=== PATIENT | male | born 1960 | race Caucasian/White ===

== ENCOUNTER 2018-04-30 15:09 | Inpatient (IN) | payer OTHER ==
[2018-04-30] MEDS ORDERED: fentaNYL 100 MCG/2 ML INJ ONE ×2 (15:18→20:15)
[2018-04-30] MEDS ORDERED: HEPARIN 10,000 UNIT/10 ML MDV (1,000 UNIT/ML) ONE (15:18)
[2018-04-30] MEDS ORDERED: VERAPAMIL 5 MG/2 ML VIAL ONE (15:18)
[2018-04-30] MEDS ORDERED: LIDOCAINE 1% 300 MG/30 ML SDV ONE (15:18)
[2018-04-30] MEDS ORDERED: MIDAZOLAM 2 MG/2 ML VIAL ONE ×2 (15:18→20:16)
[2018-04-30] MEDS ORDERED: IOHEXOL 350mgI/ML (OMNIPAQUE) 150 ML BTL IV ONE (15:19)
--- NOTE | 2018-04-30 15:29 | EDPHY ---
H & P Stated Complaint: post arrest Time Seen by Provider: 04/30/18 15:25 HPI/ROS: CHIEF COMPLAINT: VFib arrest HISTORY OF PRESENT ILLNESS: The patient is brought in emergently by paramedics after VFib arrest. The patient was at home and was observed to collapse by his started CPR. Paramedics were called the patient was noted to be in ventricular fibrillation. The patient received IV epinephrine, amiodarone in 2 shocks. This resulted in conversion to a normal sinus rhythm. Total CPR time was approximately 15 min. The patient arrives by paramedics with bag-valve masking occurring. They did attempt a oral airway without success. The patient has had no purposeful movements aside from clenching of the jaw since his return of spontaneous circulation. REVIEW OF SYSTEMS: A comprehensive 10 point review of systems is unobtainable Source: Patient, EMS Exam Limitations: No limitations - Medical/Surgical History Hx Asthma: No Hx Chronic Respiratory Disease: No Hx Diabetes: No Hx Cardiac Disease: No Hx Renal Disease: No Hx Cirrhosis: No Hx Alcoholism: No Hx HIV/AIDS: No Hx Splenectomy or Spleen Trauma: No Other PMH: spinal stenosis; knee surgery - Social History Smoking Status: Never smoked - Physical Exam Exam: General Appearance: Obtunded, unresponsive Eyes: Pupils equal and round no pallor or injection ENT, Mouth: Mucous membranes moist Respiratory: Spontaneous breathing Cardiovascular: Regular rate and rhythm Gastrointestinal: Abdomen is soft and nontender, no masses, bowel sounds normal Neurological: GCS 3 Skin: Warm and dry, no rashes Musculoskeletal: Neck is supple nontender Extremities: No asymmetric calf swelling appreciated Constitutional: Initial Vital Signs Heart Rate 71 04/30/18 15:12 Allergies/Adverse Reactions: No Known Allergies Allergy (Unverified 03/30/15 15:04) Home Medications: Medication Instructions Recorded Multivitamins [Tab-A-Angelia] 1 each PO DAILY 03/30/15 Aspirin EC [Aspirin EC 325 mg (*)] 325 mg PO DAILY #30 tab 03/31/15 Atorvastatin Calcium [Lipitor 40 40 mg PO DAILY #30 tab 03/31/15 mg (*)] Lisinopril 2.5 mg PO DAILY #30 tablet 03/31/15 Prasugrel HCl [Effient 10mg (*)] 10 mg PO DAILY #30 tab 03/31/15 Medical Decision Making - Diagnostics EKG Interpretation: EKG: Complete interpretation has been separately recorded in the [facility] archive. Summary impression: Sinus rhythm, rate 87, bifascicular block Imaging Results: Chest x-ray AP: Images reviewed by myself, bilateral pulmonary infiltrates noted, endotracheal tube in good position. Procedures: Procedure: RSI Intubation Indication for the procedure was respiratory arrest. The patient was preoxygenated with 100% oxygen by face mask. The patient was sedated with etomidate and paralyzed with succinylcholine. The patient was orally endotracheally intubated under direct visualization with a 8.0 ETT. Tracheal intubation was confirmed with misting on the tube; breath sounds were auscultated equally bilaterally; appropriate color change with [place] [employer] CO2 detector, capnography waveform is appropriate, oxygen saturation after procedure is 85%. Chest X-ray shows ETT in good position. The procedure was performed by myself. ED Course/Re-evaluation: The patient arrives the with return of spontaneous circulation following a VFib arrest with 15 min of CPR. The patient was intubated by myself. The patient was noted to have a sinus rhythm with ST segment elevation depression noted on his EKG. A cardiac alert was initiated immediately upon arrival. Bedside echocardiogram performed by hatch supervisor demonstrates normal RV function and a EF of approximately 50%. Chest x-ray confirmed tube placement. Patient is noted to have evidence of pulmonary edema. Patient will be taken to the cardiac catheterization lab and admitted to the intensive care unit. Critical Care Time: Critical care time exclusive of procedures and exclusive of the PA's time was 35 minutes, performed by myself, Waldemar Garrido MD. Patient presents to the ED with a VFib arrest. Evaluation for possible causes of PEA performed in the emergency department. Patient taken emergently to cardiac optical lab technician for angiography and ICU admission for HACA protocol. - Data Points Laboratory Results: 04/30/18 04/30/18 04/30/18 15:27 15:20 15:17 POC Hgb 19.0 gm/dL H gm/dL 18.7 gm/dL H gm/dL (13.7-17.5) (13.7-17.5) POC Hct 56 % H % 55 % H % (40-51) (40-51) POC Sodium 140 mEq/L mEq/L 143 mEq/L mEq/L (135-145) (135-145) POC Potassium 4.0 mEq/L mEq/L 2.6 mEq/L L* mEq/L (3.3-5.0) (3.3-5.0) POC Chloride 103 mEq/L mEq/L 103 mEq/L mEq/L (97-110) (97-110) POC Total CO2 21 mEq/L L mEq/L 23 mEq/L mEq/L (22-31) (22-31) POC BUN 39 mg/dL H mg/dL 38 mg/dL H mg/dL (7-23) (7-23) POC Creatinine 1.1 mg/dL mg/dL 1.2 mg/dL mg/dL (0.7-1.3) (0.7-1.3) POC Glucose 213 mg/dL H mg/dL 208 mg/dL H mg/dL (70-100) (70-100) POC Troponin I 0.18 ng/mL H ng/mL (0.00-0.08) Point of Care Test Results: Chemistry 04/30/18 04/30/18 04/30/18 15:27 15:20 15:17 POC Sodium 140 mEq/L mEq/L 143 mEq/L mEq/L (135-145) (135-145) POC Potassium 4.0 mEq/L mEq/L 2.6 mEq/L L* mEq/L (3.3-5.0) (3.3-5.0) POC Chloride 103 mEq/L mEq/L 103 mEq/L mEq/L (97-110) (97-110) POC Total CO2 21 mEq/L L mEq/L 23 mEq/L mEq/L (22-31) (22-31) POC BUN 39 mg/dL H mg/dL 38 mg/dL H mg/dL (7-23) (7-23) POC Creatinine 1.1 mg/dL mg/dL 1.2 mg/dL mg/dL (0.7-1.3) (0.7-1.3) POC Glucose 213 mg/dL H mg/dL 208 mg/dL H mg/dL (70-100) (70-100) POC Troponin I 0.18 ng/mL H ng/mL (0.00-0.08) ISTAT H&H 04/30/18 04/30/18 15:27 15:20 POC Hgb 19.0 gm/dL H gm/dL 18.7 gm/dL H gm/dL (13.7-17.5) (13.7-17.5) POC Hct 56 % H % 55 % H % (40-51) (40-51) Departure - Departure Disposition: [facility] Inpatient Acute Clinical Impression: Cardiac arrest with ventricular fibrillation Condition: Critical Referrals: Patient,NotPresent [Primary Care Provider] - As per Instructions
[2018-04-30] MEDS ORDERED: VECURONIUM BROMIDE 10 MG VIAL ONE ×2 (15:40→18:20)
[2018-04-30] MEDS ORDERED: DOPamine/DEXTROSE 400 MG/250 ML BAG IV ONE ×2 (15:41→17:14)
[2018-04-30] MEDS ORDERED: SUCCINYLCHOLINE CHLORIDE 200 MG/10 ML VIAL IVP ONE (15:43)
--- NOTE | 2018-04-30 15:44 | CPEKG ---
Test Reason : OPEN Blood Pressure : / mmHG Vent. Rate : 087 BPM Atrial Rate : 087 BPM P-R Int : 199 ms QRS Dur : 164 ms QT Int : 475 ms P-R-T Axes : 083 104 039 degrees QTc Int : 572 ms Sinus rhythm RBBB and LPFB Confirmed by Waldemar Garrido ([id number]) on 04/30/2018 3:43:27 PM Referred By: Kane Talbot Confirmed By:Waldemar Garrido
--- NOTE | 2018-04-30 15:48 | PDCONSULT ---
Vp Purchasing Note: CC: Arrest in the field (VF/VT) with 2 shocks and return of sinus rhythm HPI: Patient is a 57 y/o male with history of CAD s/p PCI to the RCA (in the setting of VF arrest in March 2015) with further history of HTN and HLP (based on medical therapy), who was working on computer at home, called for his , then went down. CPR was started and EMS arrived with VF noted on monitor. Two defibrillators were delivered in the field with return of normal sinus rhythm. One dose of EPI and AMIO were given in the field. In the ER, patient was paralyzed, and ETT tube was placed for respiratory support. Sats (on 100%) were noted to be 80-85%. Patient was last seen by Cardiology in mid February with no voiced cardiovascular complaints, but mild elevation (above guideline recommendations) to the LDL. Discussion at that time for patient to be started on PCSK-9 therapy given intolerance to higher dose statin therapy. 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) Fx: CAD NKDA Medications: (1) ASA (2) Lisinpril (3) Niacin (4) Repatha Vitals: as below PE: GEN: sedated and intubated SKIN: cool, without appreciable mottling HEENT: NCAT with PERRLA but sluggish NECK: supple LUNGS: course breath sounds (post intubation) without appreciable crackles noted COR: RRR without m/r/g ABD: soft without bowel sounds noted EXT: cool with 2+ DP/PT/RAD pulses Neuro: not assessable given sedation/intubation Labs: Laboratory Tests 04/30/18 04/30/18 15:27 15:29 POC Hgb 19.0 H POC Hct 56 H POC Sodium 140 POC Potassium 4.0 POC Chloride 103 POC Total CO2 21 L POC BUN 39 H POC Creatinine 1.1 POC Glucose 213 H POC Troponin I 0.32 H ECG with RBBB pattern, and no clear ST/T wave changes noted CXR with good placement of the ETT tube. No clear atelectasis was noted. Grossly normal heart size Echo: sluggish inferoposterior wall. Assessment: Patient is a 57 y/o male with history of CAD s/p PCI to the RCA in the setting of VF arrest in 2016 who went down at home with . High quality CPR was started and EMS arrived with two defibrillations, EPI, and AMIO round given. Patient was intubated in the ER. Bedside echo with mild hypokinesis to the inferior wall. Patient taken to the lab animal technician urgently, and critical principal D1 lesion noted. Patent RCA stents were noted. Plan: Intervention to the principal D1 underway as this note is being generated.
[2018-04-30] MEDS ORDERED: BIVALIRUDIN 250 MG/5 ML VIAL IV ONE (15:51)
[2018-04-30 16:04] LABS: PLATELET COUNT 120 10^3/uL (150-400)
[2018-04-30] MEDS ORDERED: NITROGLYCERIN 1,500 MCG/15 ML VIAL MISC ONE (16:04)
[2018-04-30] MEDS ORDERED: PROPOFOL/EMULSION 500 MG/50 ML BOTTLE IV ONE (16:07)
[2018-04-30 16:08] LABS: INR 1.28 (0.83-1.16); PROTIME(PATIENT) 16.2 SEC (12.0-15.0)
[2018-04-30] MEDS ORDERED: METOPROLOL TARTRATE 5 MG/5 ML INJ ONE ×2 (16:08→16:24)
[2018-04-30] MEDS ORDERED: PRASUGREL HCL 10 MG TAB ONE (16:13)
[2018-04-30] MEDS ORDERED: SUCCINYLCHOLINE CHLORIDE 200 MG/10 ML SYR IVP ONE (16:15)
[2018-04-30] MEDS ORDERED: ETOMIDATE 40 MG/20 ML INJ ONE (16:15)
[2018-04-30] MEDS ORDERED: POTASSIUM Cl (KCl) 10 MEQ/100 ML BAG IV ONE (16:21)
[2018-04-30] MEDS ORDERED: PROPOFOL/EMULSION 1,000 MG/100 ML BOTTLE IV ONE (16:25)
[2018-04-30] MEDS ORDERED: fentaNYL/NACL 100 ML IV SCH ×2 (16:30→17:00)
[2018-04-30] MEDS ORDERED: MIDAZOLAM HCL 50 MG in D5W 50 ML IV PRN (16:30)
[2018-04-30] MEDS ORDERED: ASPIRIN 81 MG CHEWABLE TAB ONE (16:32)
[2018-04-30] MEDS ORDERED: NS 1,000 ML IV SCH (16:45)
--- NOTE | 2018-04-30 16:50 | PDDXCAT ---
Diagnostic Cath Note - . Date: 04/30/18 Direct Care Supervisor: Antione Indication: other (Cardiac arrest) - Procedure Access: right groin Procedure: left heart catheterization, coronary angiography, left ventriculogram - Materials Left Heart Cath size: 6F Left Heart Cath materials: standard multipack (JL4, JR4, pigtail) - Findings-Left Heart Catheterization LM: Unobstructed LAD: Widely patent. Mid LAD 30% stenosis, principal diagonal 99% occluded LCX: Unobstructed RCA: Stents widely patent EDP: 12 mm of mercury LVEF: 50 Wall motion: Global hypokinesis Complications: None Estimated blood loss: <50ml Assessment: Ventricular fibrillation cardiac arrest with critical 99% stenosis of the principal diagonal. Borderline LV systolic function with normal filling pressures. Plan: PCI Intervention: Procedure: After reviewing diagnostic angiograms elected to proceed with emergency PCI. Patient was anticoagulated with Angiomax. Using a 0.014 luge wire within a 6 Lao JL4 guiding catheter left main coronary selectively intubated. 0.014 wire was advanced into the diagonal. Pre dilatation was performed with a 2.5 mm balloon re-establishing BERNIE grade 3 flow. 3.5 x 16 mm synergy stent was placed across the lesion deployed using a single inflation. Repeat angiograms revealed excellent flow with a step-down. Patient was administered intracoronary nitroglycerin with improvement of distal spasm. Patient's hemodynamic improved with opening of the diagonal. Dopamine was used transiently. For details please see the attached computer report. After observation in the oil field laborer systemic blood pressure was 140/80 off of inotropics support. Hypothermia after cardiac alert was initiated with a ThermoCool catheter inserted from the right femoral vein. Patient is taken to the ICU in stable condition. Serial laboratory data during the procedure showed improvement in PH to 7.14 with improved ventilation. Oxygenation remained stable. Will discuss ongoing care with critical Care Medicine. I met with the patient's family and support team. Will continue hypothermia for 24 hr with rewarming tomorrow. Final diagnosis cardiac alert with 15 min CPR status post successful PCI and stenting of the principal diagonal. Prognosis guarded Patient Problems: Problems Problem Status Onset Elevated troponin I level Acute Syncope Acute Ventricular fibrillation Acute Cardiac arrest with ventricular fibrillation Acute
[2018-04-30] MEDS ORDERED: ATROPINE SULFATE 1 MG/10 ML SYR ONE (16:54)
[2018-04-30 17:46] LABS: CREATINE KINASE 411 IU/L (0-224)
[2018-04-30] MEDS ORDERED: EPINEPHrine 1 MG in NS 250 ML IV SCH (18:00)
[2018-04-30] MEDS ORDERED: ALBUMIN 5% 250 ML IV ONE (18:00)
[2018-04-30] MEDS ORDERED: SODIUM BICARBONATE 50 MEQ/50 ML SYR IVP ONE (18:00)
[2018-04-30] MEDS ORDERED: METOPROLOL TARTRATE 5 MG/5 ML INJ IVP SCH (18:00)
[2018-04-30] MEDS ORDERED: FUROSEMIDE 40 MG/4 ML VIAL IVP ONE (18:00)
[2018-04-30] MEDS ORDERED: SODIUM BICARBONATE 50 MEQ/50 ML SYR ONE ×2 (18:03→21:44)
[2018-04-30 18:05] LABS: INR 5.06 (0.83-1.16); PROTIME(PATIENT) 46.2 SEC (12.0-15.0)
[2018-04-30] MEDS ORDERED: FUROSEMIDE 40 MG/4 ML VIAL ONE (18:28)
[2018-04-30] MEDS ORDERED: ALBUMIN 5% 250 ML BOTTLE IV ONE ×2 (18:44→20:28)
--- NOTE | 2018-04-30 18:45 | GCON ---
[f rep st] CONSULTATION GROUND INSTRUCTOR BASIC CONSULTATION HISTORY OF PRESENT ILLNESS: The patient is a 57-year-old white male with a past medical history of c oronary artery disease with a PCI to the right RCA in 2016 after having a ventricular fibrillation ar rest at that time. He also has hypertension and hyperlipidemia. He was working on a computer at formerly [facility] when he called his and then went down. CPR was started immediately. EMS arrived, and he was defibrillated in the field. He was also given amiodarone and epinephrine in the field. He was broug ht to the emergency room. An endotracheal tube was placed. He was taken to the cardiac catheterizat ion lab where a cardiac stent was placed. Currently, he is sedated and on mechanical ventilation. Petr pandey was subsequently transferred to the intensive care unit where he will be beginning HACA protocol. REVIEW OF SYSTEMS: A 10-point review of systems was attempted, but unable to be performed secondary to obtundation and mechanical ventilation. PAST MEDICAL HISTORY: Significant for coronary artery disease, hypertension, and hyperlipidemia. PAST SURGICAL HISTORY: He has had a PCI. ALLERGIES: No known allergies to medications. SOCIAL HISTORY: No history of tobacco use. No history of alcohol use. 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 He is m arried and has excellent family support. FAMILY HISTORY: Significant for coronary artery disease. PHYSICAL EXAM: VITAL SIGNS: Blood pressure is 103/70, pulse 80, respirations 12, temperature 36.2, and oxygen saturation 83% on mechanical ventilation. GENERAL: He is a thin, well-developed 57-year- old white male, who is obtunded on mechanical ventilation. HEENT: Pupils are smallish and poorly re active. Endotracheal tube is in good position. NECK: Supple. No cervical adenopathy. HEART: Reg ular rate and rhythm with a 2/6 systolic murmur at the left sternal border without radiation. LUNGS: Diminished breath sounds and diffuse rhonchi in all lung santos. ABDOMEN: Soft and nontender. Jean Claude wel sounds are present. EXTREMITIES: No clubbing, cyanosis, or edema. LABORATORIES: White count 6.6, hemoglobin 19, hematocrit 58, and platelet count 120. INR is 1.28. Sodium 140, potassium 4.0, chloride 103, CO2 is 21, BUN 29, creatinine 1.1, and glucose 188. Troponi n is elevated 0.070. Chest x-ray shows alveolar opacifications with upper lobe predominance, likely pulmonary edema given clinical situation. IMPRESSION: 1. Status post cardiac arrest. 2. Coronary artery disease. 3. Status post stent to the right coronary artery. 4. Coma. 5. Acute respiratory failure, requiring high oxygenation and high PEEP. 6. History of hyperlipidemia. 7. Pulmonary edema. 8. History of hypertension. RECOMMENDATIONS: 1. HACA per protocol. 2. Adequate sedation. 3. DVT and PE prophylaxis. 4. Stress ulcer prophylaxis. 5. Hold nutrition for now. 6. Close cardiovascular monitoring. 7. Prognosis is guarded at this time. /[id number]/MODL
[2018-04-30] MEDS ORDERED: VASOPRESSIN 25 UNIT in NS 250 ML IV SCH (19:00)
--- NOTE | 2018-04-30 19:35 | PDANEPAE ---
ANE History of Present Illness 57 yo for ecmo placement s/p v fib arrest, now acidotic, hypoxic on max vent ANE Past Medical History - Cardiovascular History Hx Hypertension: No Hx Arrhythmias: Yes Hx Coronary Artery / Peripheral Vascular Disease: Yes Hx CHF / Valvular Disease: Yes - Pulmonary History Hx Oxygen in Use at Home: No Hx Sleep Apnea: No - Endocrine History Hx Diabetes: No ANE Review of Systems Review of Systems: ANE Patient History - Allergies Allergies/Adverse Reactions: No Known Allergies Allergy (Unverified 03/30/15 15:04) - Home Medications Home medications: home medication list seen and reviewed Home Medications: Multivitamins [Tab-A-Angelia] 1 each PO DAILY 03/30/15 [Last Taken Unknown] - Smoking Hx Smoking Status: Never smoked ANE Labs/Vital Signs - Labs Result Diagrams: 04/30/18 15:42 04/30/18 17:00 - Vital Signs Blood Pressure: 85/38 Heart Rate: 72 Respiratory Rate: 36 O2 Sat (%): 90 Height: 5 ft 11 in Weight: 72.575 kg ANE Physical Exam - Airway Mouth exam: ETT in situ - ASA Status ASA Status: V ANE Anesthesia Plan Anesthesia Plan: general endotracheal anesthesia
[2018-04-30 20:03] LABS: PLATELET COUNT 199 10^3/uL (150-400)
[2018-04-30] MEDS ORDERED: IOPAMIDOL (ISOVUE-300) 50 ML VIAL ONE (20:40)
[2018-04-30 20:42] LABS: CREATINE KINASE 494 IU/L (0-224)
[2018-04-30] MEDS ORDERED: ALBUMIN 5% 500 ML BOTTLE IV ONE ×2 (21:43→21:56)
[2018-04-30] MEDS ORDERED: SODIUM BICARBONATE 50 MEQ/50 ML SYR IV ONE ×2 (22:00)
[2018-04-30] MEDS ORDERED: ALBUMIN 5% 500 ML IV ONE ×4 (22:00→23:30)
[2018-04-30] MEDS: POTASSIUM Cl (KCl) 50 ML IV SCH ×2 (22:23→23:27)
[2018-04-30] MEDS: PROPOFOL/EMULSION 100 ML IV SCH (22:26)
[2018-04-30] MEDS: VECURONIUM BROMIDE 50 MG in D5W 50 ML IV SCH (22:26)
[2018-04-30] MEDS: NOREPINEPHRINE BITARTRATE 16 MG in NS 250 ML IV SCH (22:27)
[2018-04-30] MEDS ORDERED: CALCIUM GLUCONATE 50 ML IV ONE ×2 (22:30→23:30)
--- NOTE | 2018-04-30 22:57 | PDINTPN ---
Pet Groomer Progress Note Assessment/Plan: CTSP due to shock with refractory metabolic and respiratory acidosis and hypoxemia. The patient was put on A-V ECMO by Dr. Tinajero just prior to my arrival, and oxygen saturation is excellent. Patient's systolic blood pressures improved and pressors are being weaned, currently off epinephrine and dopamine, on norepinephrine at 35 and vasopressin at 0.04. An initial blood gas shortly after my arrival showed persistent metabolic acidosis with incomplete respiratory compensation. The patient was given 2 amps of bicarbonate and this ECMO sweep gas flow was increased in order to improve CO2 removal, and this improved during my time at the bedside, with a pH of 7.40 and SpO2 of 352 on the most recent blood gas. The patient's making 150-200 cc/hour of urine over the last 2 hours. Adjusted ventilator settings for lung protective strategy, with low tidal volume to reduce the driving pressure, and reduced peak inspiratory flow rate to reduce the peak inspiratory flow rate. The PEEP will be kept at 7 cm H2O for the time being to help minimize derecruitment from the pulmonary edema. I expect the most the pulmonary edema occurred during the initial cardiac arrest and will clear with improved cardiac output and ECMO support. I also expect that his lactic acidosis will improve with improved oxygenation and circulatory support. There is no indication for renal replacement therapy currently given the improved acid-base status, urine output, and low-normal potassium. Discussed the case with Dr. Tinajero, Dr. Levine, Dr. Boo, respiratory therapy, job trainer, and RN The patient will be kept on ECMO overnight, with management by Dr. Tinajero and the job trainer. He will not be transferred tonight due to poor weather conditions with increased risk of complications/deterioration en route. 95 min critical care time at the bedside consulting with other providers, correcting adjustment of pressors, fluid status, and ventilator management in response to arterial blood gas and other lab results in this critically ill patient. 04/30/18 22:57 Objective: Vital Signs Temp Pulse Resp BP Pulse Ox 32.6 C L 47 L 30 H 97/68 L 100 04/30/18 22:36 04/30/18 22:36 04/30/18 22:36 04/30/18 22:36 04/30/18 22:36 Laboratory Results 04/30/18 21:30 04/30/18 21:30 04/29/18 04/30/18 05/01/18 05:59 05:59 05:59 Output Total 800 Balance -800 PT REJ 04/30/18 21:30 INR REJ 04/30/18 21:30 ICD10 Worksheet Patient Problems: Problems Problem Status Onset CAD in [place] artery Acute Cardiac arrest with ventricular fibrillation Acute s/p AV ECMO, femorals Acute ~04/30/18 Elevated troponin I level Acute Syncope Acute Ventricular fibrillation Acute
[2018-04-30 23:04] LABS: INR 5.35 (0.83-1.16); PROTIME(PATIENT) 48.2 SEC (12.0-15.0)
[2018-04-30] MEDS: FAMOTIDINE 20 MG/NACL 50 ML IV SCH (23:23)
[2018-04-30] MEDS: PETROLAT,WHT/MIN OIL/SOD CHL 3.5 GM OPHT.OINT EACHEYE SCH (23:23)
[2018-04-30] MEDS ORDERED: HEPARIN/DEXTROSE 500 ML IV SCH (23:30)
[2018-05-01] MEDS ORDERED: D50W 25 GM/50 ML SYR IVP PRN (00:17)
[2018-05-01] MEDS ORDERED: INSULIN REGULAR HUMAN 100 UNIT in NS 100 ML IV SCH (00:17)
[2018-05-01] MEDS ORDERED: D5W 1,000 ML IV SCH (00:17)
[2018-05-01] MEDS ORDERED: PROTOCOL POTASSIUM 1 DOSE MISC PRN (01:19)
[2018-05-01] MEDS: PETROLAT,WHT/MIN OIL/SOD CHL 3.5 GM OPHT.OINT EACHEYE SCH ×4 (02:36→17:26)
[2018-05-01] MEDS: CHLORHEXIDINE GLUCONATE 15 ML UDL PO SCH ×3 (02:37→22:19)
[2018-05-01] MEDS: VECURONIUM BROMIDE 50 MG in D5W 50 ML IV SCH ×2 (03:16→13:16)
[2018-05-01] MEDS: NOREPINEPHRINE BITARTRATE 16 MG in NS 250 ML IV SCH (03:16)
[2018-05-01] MEDS ORDERED: ALBUMIN 5% 500 ML BOTTLE IV ONE ×2 (03:33→14:09)
[2018-05-01] MEDS: POTASSIUM Cl (KCl) 50 ML IV SCH ×8 (03:35→13:14)
[2018-05-01] MEDS ORDERED: ALBUMIN 5% 500 ML IV ONE ×6 (04:00→23:30)
[2018-05-01 04:27] LABS: PLATELET COUNT 88 10^3/uL (150-400)
[2018-05-01 05:15] LABS: CREATINE KINASE 339 IU/L (0-224)
[2018-05-01] MEDS ORDERED: CALCIUM GLUCONATE 50 ML IV ONE (05:30)
[2018-05-01] MEDS ORDERED: MAGNESIUM SULF 1 GM/DEXTROSE 100 ML IV ONE (05:30)
[2018-05-01 05:34] LABS: INR 3.05 (0.83-1.16); PROTIME(PATIENT) 31.4 SEC (12.0-15.0)
--- NOTE | 2018-05-01 06:12 | GCON ---
[f rep st] CONSULTATION NEPHROLOGY CONSULTATION DATE OF CONSULTATION: 04/30/2018 REASON FOR CONSULTATION: Oliguric acute kidney injury, status post VFib arrest , ___HOCA protocol. HISTORY OF PRESENT ILLNESS: This is a critically ill 57-year-old male with a past medical history significant primarily for previously known coronary artery disease, who suffered a VFib arrest secondary to a primary diagonal stenosis. History was obtained from the medical records, as well as the medical staff. The patient is intubated and obtunded. The patient was in his baseline state of health, when he was noted to have a witnessed arrest in his home. EMT was immediately called and CPR was immediately initiated. The EMT service arrived and converted the patient on his 2nd electrical cardioversion. Total CPR time was 15 minutes. Upon arrival to the emergency room, the patient was taken to the cardiac catheterization lab. There, the primary diagonal was stented successfully. Other measurements done at that time included an ejection fraction noted to be 50%, and an LVEDP of 12. The patient has since been on the HOCA protocol, and on pressor support. Since the time of his arrest, he has shown evidence of hemoconcentration. His laboratory studies have been notable for a mixed respiratory and metabolic alkalosis. He does have a markedly abnormal chest x- ray, and extremely poor oxygenation, with a PO2 of 46. I was contacted by Dr. Levine and Dr. Tinajero relating to the initiation of CRRT. As related to the above findings, we are asked by Dr. Levine to assist the patient's renal diagnosis and management. PAST MEDICAL HISTORY: 1. Coronary artery disease, status post prior RCA stenting. 2. Hypertension. 3. Hyperlipidemia. SURGICAL HISTORY: Former PCI. ALLERGIES: No known allergies. FAMILY HISTORY: Positive for coronary artery disease. SOCIAL HISTORY: The patient is . 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 He does not smoke cigarettes or drink alcohol. REVIEW OF SYSTEMS: Unobtainable. PHYSICAL EXAM: VITALS: Blood pressure 85/38, heart rate 72. HEENT: Eyes, sclerae clear. Pupils small. Oropharynx, endotracheal tube in place. NECK: No lymphadenopathy or thyromegaly. LUNGS: Clear to auscultation anteriorly. CARDIOVASCULAR: Regular rate and rhythm. ABDOMEN: No bowel sounds are heard. The abdomen is relatively soft. : Olmedo catheter in place. EXTREMITIES: Warm. There is no edema. INTEGUMENT: Generally clear. NEURO: The patient is obtunded. There is no focality noted. LABORATORY STUDIES: Sodium 134, potassium 4.6, bicarb 16, creatinine 1.1, glucose 1.82, ionized calcium 0.99, phosphorus 8.8, AST 583, LDH 2017, CK MB 7.7 , troponin 1.3. White count 5, hematocrit 62.7, platelet count 199. IMPRESSION AND PLAN: Oliguric acute injury: Given the patient's arrest and dye load, it seems quite likely he will have sustained acute kidney injury. At present, there are not major advantages from a metabolic standpoint or a volume standpoint for dialysis, but it does seem likely that these will develop soon. Thus, being prepared for CRRT, or initiating CRRT at low dose that can be adjusted later, would be reasonable, providing it does not cause further hemodynamic compromise. I am presently assessing whether this is best done off the CRRT circuit or via an independent line. The patient is going to be systemically anticoagulated for the ECMO he is receiving, and so standard CVHDF without regional citrate should work, although the patient is quite hemoconcentrated. Again, we are going to have careful considerations upcoming relating to the technical aspects of this, and assure we are not inducing additional instability. His oxygenation issue should be solved by his ECMO. We will continue to monitor the situation closely, and provide dialytic support in the most optimal way possible and as needed. Thank you for allowing us to participate in this gentleman's care. We will continue to follow along closely with you. /[id number]/MODL MTDD
--- NOTE | 2018-05-01 06:22 | GOP ---
[f rep st] OPERATIVE REPORT DATE OF OPERATION: 04/30/2018 SURGEON: Reynaldo Tinajero DO MECHANICAL DESIGN TECHNICIAN: Melinda Clements, PAC. ANESTHESIOLOGIST: Fortino Pugh MD PREOPERATIVE DIAGNOSIS: Cardiogenic shock with cardiac arrest and respiratory failure, unresponsive to ventilator oxygenation with severe pulmonary edema. POSTOPERATIVE DIAGNOSIS: Cardiogenic shock with cardiac arrest and respiratory failure, unresponsive to ventilator oxygenation with severe pulmonary edema. PROCEDURE PERFORMED: Venoarterial ECMO via right common femoral artery and left common femoral vein with a 15-German arterial cannula and a 21-German venous cannula under fluoro guidance. FINDINGS: DESCRIPTION OF PROCEDURE: The patient had naq-un-zjkopqgk arrest, was intubated, and brought to the laborer [place]. After resuscitation, he was found to have a diagonal occlusion, which was opened. He was taken to the ICU where severe pulmonary edema with copious fluid emanating from the endotracheal made it difficult to oxygenate. We were requested to put in an ECMO to assist with oxygenation. His car diac function was well preserved. He was consented from his . He was taken emergently to the op erating room. Under fluoro guidance, the previous catheter was wired and an attempted harish ous cannula was started through that site. However, the wire would not enter the inferior vena cava and kept going down the iliac. For that reason, we abandoned that site and through a percutaneous st ick, placed a 21-German bicaval long venous cannula in the superior vena cava under fluoro guidance a fter heparinization without difficulty. We then placed a femoral arterial cannula on the right side because he had an arterial line on the left under fluoro guidance with good arterial return and witho ut difficulty. We undersized the cannula to allow for distal perfusion of the leg since this was don e percutaneously. The cannulas were secured in place. He was returned to the ICU in critical condit ion. SURGEONS: Reynaldo Tinajero DO and Anirudh Levine MD. /[id number]/MODL
--- NOTE | 2018-05-01 06:46 | SOAPPROG ---
SOAP Progress Note Assessment/Plan: POD#1 s/p emergent VA ECMO via right common femoral artery & left common femoral vein Cardiogenic shock with severe pulmonary edema/ARDS with hypoxemia s/p VA ECMO - Required multiple pressors that are slowly being weaned. Oxygenation status improving. HACA protocol with plan to rewarm later this afternoon. Neuro status TBD. VFib arrest (outside) s/p CPR & x2 defibrillations - Global hypokinesis noted during emergent LHC. Diagonal artery culprit lesion. High-grade CAD of the diagonal s/p successful PCI - Also has a history of PCI RCA 2015. Metabolic acidosis - improving ARF - seen by Dr. Boo. CRRT deferred at this time. Creatinine 1.4 Dispo: Ongoing critical cares per multidisciplinary team HACA protocol Subjective: Intubated, sedated, paralyzed. Temp 32.9*. Objective: Vital Signs Temp Pulse Resp BP Pulse Ox 33.3 C L 51 L 26 H 115/68 100 05/01/18 05:49 05/01/18 05:49 05/01/18 05:49 05/01/18 05:49 05/01/18 05:49 Laboratory Results 05/01/18 04:00 05/01/18 04:00 04/30/18 05/01/18 05/02/18 05:59 05:59 05:59 Intake Total 1544 Output Total 2755 Balance -1211 PT 31.4 SEC (12.0-15.0) H 05/01/18 04:55 INR 3.05 (0.83-1.16) H 05/01/18 04:55 General: unresponsive HEENT: NCAT, MMM Respiratory: intubated, rales Cardiac: bradycardiac, vfib pads : fitzgerald Extremities - right tibia IO R & L cannulas secure with dressings mildly saturated ICD10 Worksheet Patient Problems: Problems Problem Status Onset CAD in [place] artery Acute Cardiac arrest with ventricular fibrillation Acute s/p AV ECMO, femorals Acute ~04/30/18 Elevated troponin I level Acute Syncope Acute Ventricular fibrillation Acute
[2018-05-01] MEDS: FAMOTIDINE 20 MG/NACL 50 ML IV SCH ×2 (08:04→20:21)
--- NOTE | 2018-05-01 08:09 | PDINTPN ---
Seo Expert Progress Note Assessment/Plan: Assessment/plan: * Status post VFib cardiac arrest. * Coronary artery disease-status post PCI to diagonal * HACA protocol-currently being cooled on ECMO. For warming to begin approximately 4:30 this afternoon -continue per protocol * Acute hypercarbic and hypoxemic respiratory failure secondary to above- currently on ECMO. Excellent oxygenation. PCO2 low -will continue lung protective mechanisms. * Bradycardia * ECMO-per mat inspector. Will likely continue until after patient has warmed * Metabolic/lactic acidosis-improved. Given 2 amps of bicarb last night. * Shock-cardiogenic. Weaning pressors slowly * Acute renal failure-creatinine up to 1.4 -per Nephrology * Sedation-adequate. Currently paralyzed * VTE prophylaxis * Stress ulcer prophylaxis Subjective: Sedated and paralyzed on mechanical ventilation. Objective: Vital Signs Temp Pulse Resp BP Pulse Ox 32.9 C L 44 L 26 H 109/67 100 05/01/18 08:00 05/01/18 08:00 05/01/18 08:00 05/01/18 08:00 05/01/18 08:00 Laboratory Results 05/01/18 04:00 05/01/18 07:10 04/30/18 05/01/18 05/02/18 05:59 05:59 05:59 Intake Total 1544 Output Total 2755 290 Balance -1211 -290 PT 31.4 SEC (12.0-15.0) H 05/01/18 04:55 INR 3.05 (0.83-1.16) H 05/01/18 04:55 Laboratory Results 05/01/18 04:00 05/01/18 07:10 05/01/18 05/01/18 05/01/18 04:55 04:00 04:00 PT 31.4 SEC H SEC (12.0 - 15.0) INR 3.05 H (0.83 - 1.16) APTT > 250.0 SEC H* SEC (23.0 - 38.0) Patient Temperature pCO2 pO2 Total CO2 POC ABG pH ABG pH POC ABG pCO2 ABG PO2/FiO2 Ratio ABG HCO3 ABG O2 Saturation O2 Concentration % Respiration Rate Set Respiration Rate Assist Control Tidal Volume End Tidal CO2 9 PEEP Calcium 6.7 mg/dL L mg/dL (8.5 - 10.4) Phosphorus 1.4 mg/dL L mg/dL (2.5 - 4.5) Magnesium 1.7 mg/dL mg/dL (1.6 - 2.3) Total Bilirubin 1.4 mg/dL mg/dL (0.1 - 1.4) AST 227 IU/L H IU/L (17 - 59) ALT 132 IU/L H IU/L (21 - 72) Alkaline Phosphatase 73 IU/L IU/L (38 - 126) Lactate Dehydrogenase 2134 IU/L H IU/L (313 - 618) Creatine Kinase CK-MB (CK-2) Fraction CK-MB (CK-2) % Creatine Kinase Interp Troponin I Total Protein 4.9 g/dL L g/dL (6.3 - 8.2) Albumin 3.3 g/dL L g/dL (3.5 - 5.0) Specimen Hemolysis 05/01/18 05/01/18 05/01/18 04:00 01:45 00:07 PT INR APTT Patient Temperature 33.1 DEGREES DEGREES pCO2 17 mmHg L* mmHg (34 - 38) pO2 351 mmHg H mmHg (65 - 75) Total CO2 13 mEq/L L mEq/L (23 - 27) POC ABG pH 7.37 (7.35 - 7.45) ABG pH 7.43 (7.35 - 7.45) POC ABG pCO2 21 mmHg L mmHg (34 - 38) ABG PO2/FiO2 Ratio 878 RATIO RATIO ABG HCO3 12 mEq/L L mEq/L (22 - 26) ABG O2 Saturation 100 % H % (92 - 95) O2 Concentration % 40 % % Respiration Rate 26 Set Respiration Rate 26 Assist Control YES Tidal Volume 350 End Tidal CO2 PEEP 7 Calcium Phosphorus Magnesium Total Bilirubin AST ALT Alkaline Phosphatase Lactate Dehydrogenase Creatine Kinase 339 IU/L H IU/L (0 - 224) CK-MB (CK-2) Fraction 18.10 ng/mL H ng/mL (0.00 - 4.55) CK-MB (CK-2) % 5.3 % H % (0.0 - 4.0) Creatine Kinase Interp POSITIVE H Troponin I 11.000 ng/mL H ng/mL (0.000 - 0.034) Total Protein Albumin Specimen Hemolysis 106 Chest k-kix-geetaakz by myself. Endotracheal tube in good position. Central line in good position. There is diffuse pulmonary edema and likely pleural effusions - Time Spent With Patient Time Spent With Patient: 45 min of critical care time spent with patient. Case discussed with respiratory therapy and nursing Physical Exam - Physical Exam General Appearance: other (Sedated and paralyzed) EENT: PERRL/EOMI, ET tube Neck: supple Respiratory: rales (Bibasilar), No lungs clear, No normal breath sounds, No wheezing Cardiac/Chest: normal peripheral pulses, regular rate, rhythm Abdomen: normal bowel sounds, non-tender, soft Male Genitalia: deferred Rectal: deferred Skin: warm/dry Extremities: normal inspection Neuro/Psych: No alert ICD10 Worksheet Patient Problems: Problems Problem Status Onset CAD in [place] artery Acute Cardiac arrest with ventricular fibrillation Acute s/p AV ECMO, femorals Acute ~04/30/18 Elevated troponin I level Acute Syncope Acute Ventricular fibrillation Acute
[2018-05-01] MEDS: ASPIRIN EC 81 MG TAB PO SCH (08:16)
[2018-05-01] MEDS: PRASUGREL HCL 10 MG TAB PO SCH (08:17)
--- NOTE | 2018-05-01 08:51 | ECHO ---
[email or web address] [place] [id number] Main: [phone] Fax: Transthoracic Echocardiogram Name: LALITHA MARCELINO MR#: [id number] Study Date: 04/30/2018 Study Time: 03:20 PM Date of : 1960 Age: 57 year(s) Height: ( ) Weight: ( ) BSA: Gender: Male Examination: Limited Echo Indication: Cardiac Alert Image Quality: Contrast: Requested by: Kane Talbot BP: / Heart Rate: Rhythm: Indication: Cardiac Alert Procedure Staff Design/Animation Instructor: Hung Galicia RDCS Reading Physician: Kane Talbot MD Requesting Provider: Conclusions: no pericardial effusion. Borderline LV systolic function. Normal right ventricular size and function. Measurements: Chambers Valvular Assessment AV/MV Valvular Assessment TV/PV Normal Normal Normal Name Value Range Name Value Range Name Value Range Continued Measurements: Findings: Pericardium: No pericardial effusion. Exam Comments: This is a limited echo to evaluate RV and LV function. The LV ejection fraction is 45-50% The RV size and function are normal. There is mild Aortic calcification . (No Signature Object) Patient: LALITHA MARCELINO Study Date: 04/30/2018 Page 1 of 1 03:20 PM [id number]
[2018-05-01] MEDS ORDERED: SODIUM BICARBONATE 50 MEQ/50 ML SYR IVP ONE ×2 (09:00→13:15)
[2018-05-01] MEDS ORDERED: FUROSEMIDE 40 MG/4 ML VIAL IVP ONE (10:45)
[2018-05-01 10:48] LABS: CREATINE KINASE 210 IU/L (0-224)
--- NOTE | 2018-05-01 10:58 | PDMN ---
Medical Necessity Medical necessity: MCG; M575 ventricular arrhythmias: cardiac arrest in field shocked X 2, pt intubated. urgnt rn cardiac cath - PCI to principal diagonal- venoarterial ECMO via R common femoral arterya dn L common femoral vein PMHx : CAD s/p PCI to RCA in 2016, per [facility] portal, inpt admit APPROVED
[2018-05-01] MEDS ORDERED: SODIUM BICARBONATE 50 MEQ/50 ML SYR ONE (12:43)
--- NOTE | 2018-05-01 13:30 | ASMTCASEMG ---
Living Arrangements What is your living Answers: With Spouse arrangement? Who do you live with? Type Of Residence What kind of residence do Answers: House you live in? 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 Patient is under HACA protocol and will be rewarmed around 4:30 today. Neurology to evaluate the patient in the morning. Family and friends have been here. Patient may need transfer tomorrow to [place] for ECMO treatment. CM will follow. Date Signed: 05/01/2018 01:28 PM Electronically Signed By:Nelsy King LCSW
[2018-05-01] MEDS: PROPOFOL/EMULSION 100 ML IV SCH ×2 (13:35→20:21)
--- NOTE | 2018-05-01 13:37 | ASMTCASEMG ---
Living Arrangements What is your living Answers: With Spouse arrangement? Who do you live with? Type Of Residence What kind of residence do Answers: House you live in? 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 Patient has been placed on HACA protocol and will be warmed around 4:30 this afternoon. Neurology to evaluate the patient in the morning. Family and friends have been here to support the patient and family. Patient may need transfer tomorrow to [place] for ECMO treatment care. CM will follow. Date Signed: 05/01/2018 01:36 PM Electronically Signed By:Nelsy King LCSW
--- NOTE | 2018-05-01 14:50 | SOAPPROG ---
SOAP Progress Note Assessment/Plan: Assessment: 1. Zfs-km-vwyoieeh cardiac arrest with bystander CPR 2. Acute coronary syndrome PCI of the diagonal 3. Known coronary disease history of PCI of the right coronary in the setting of sudden 4. Hyperlipidemia 5. Respiratory failure on ECMO 6. GI bleeding Procedures: Left heart catheterization PCI and stenting of the diagonal, echocardiography, placement of hypothermia catheter, ECMO Consultants: Umesh Lu 05/01/18 14:46 Impression: Prognosis guarded: Day 1. On ECMO. Patient remains paralyzed and sedated. Stable hemodynamics off pressors. Echocardiogram today shows stable ejection fraction. Plan: Continue hypothermia protocol with gentle warming overnight. Neurologic evaluation. Continued ECMO support for at least 24 hr here. If the patient shows neurologic improvement, considerations for transfer to long-term ECMO center. Reassess need for ECMO tomorrow. Ventilation/oxygenation driving discussion at this point. Questions were answered with the patients family. 05/01/18 14:50 Objective: Vital Signs Temp Pulse Resp BP Pulse Ox 33.4 C L 81 26 H 80/59 L 100 05/01/18 14:00 05/01/18 14:00 05/01/18 14:00 05/01/18 14:00 05/01/18 14:00 Laboratory Results 05/01/18 04:00 05/01/18 11:55 04/30/18 05/01/18 05/02/18 05:59 05:59 05:59 Intake Total 1544 1175 Output Total 2755 2890 Balance -1211 -1715 PT 31.4 SEC (12.0-15.0) H 05/01/18 04:55 INR 3.05 (0.83-1.16) H 05/01/18 04:55 Physical Exam - Physical Exam General Appearance: other (Intubated, on ECMO, paralyzed and sedated) Respiratory: rhonchi Cardiac/Chest: regular rate, rhythm, No edema Abdomen: soft Skin: warm/dry ICD10 Worksheet Patient Problems: Problems Problem Status Onset s/p AV ECMO, femorals Acute ~04/30/18 CAD in [place] artery Acute Elevated troponin I level Acute Syncope Acute Ventricular fibrillation Acute Cardiac arrest with ventricular fibrillation Acute
--- NOTE | 2018-05-01 14:59 | POSTANESTH ---
Post Anesthetic Evaluation Cardiovascular Status: Similar to Pre-Op Cond Respiratory Status: Tx Decrease in SpO2 Level of Consciousness/Mental Status: Unconscious Pain Control: Adequate, Prn Tx Ordered Nausea/Vomiting Control: Adequate, Prn Tx Ordered Complications Possibly Related to Anesthesia: None Noted (on vent/ecmo, haca. Off pressors. Remains critical but stable. No apparent comp from geta)
--- NOTE | 2018-05-01 16:03 | SOAPPROG ---
SOAP Progress Note Assessment/Plan: Assessment: JAMES due to shock, not oliguric, lytes OK acidosis due to ischemia, pCO2 22, bicarb 14, received 2 amps recently cardiogenic shock, cooled, on ECMO Plan: continue support discussed with family no urgent dialysis needs 05/01/18 15:59 Subjective: not communicative family and friends at bedside Objective: Vital Signs Temp Pulse Resp BP Pulse Ox 33.4 C L 75 26 H 78/51 L 86 L 05/01/18 15:00 05/01/18 15:00 05/01/18 15:00 05/01/18 15:00 05/01/18 15:00 Laboratory Results 05/01/18 04:00 05/01/18 11:55 04/30/18 05/01/18 05/02/18 05:59 05:59 05:59 Intake Total 1544 2675 Output Total 2755 3340 Balance -1211 -665 PT 31.4 SEC (12.0-15.0) H 05/01/18 04:55 INR 3.05 (0.83-1.16) H 05/01/18 04:55 Physical Exam - Physical Exam General Appearance: other (sedated on ECMO) Respiratory: other (intubated coarse bs bilat) Cardiac/Chest: regular rate, rhythm, No friction rub Abdomen: other (quiet) Skin: other (cool) Extremities: No pedal edema ICD10 Worksheet Patient Problems: Problems Problem Status Onset CAD in [place] artery Acute Cardiac arrest with ventricular fibrillation Acute s/p AV ECMO, femorals Acute ~04/30/18 Elevated troponin I level Acute Syncope Acute Ventricular fibrillation Acute
[2018-05-01 16:26] LABS: PROTIME(PATIENT) 27.8 SEC (12.0-15.0)
[2018-05-01 16:54] LABS: CREATINE KINASE 293 IU/L (0-224)
--- NOTE | 2018-05-01 18:01 | ECHO ---
[email or web address] [place] [id number] Main: [phone] Fax: Transthoracic Echocardiogram Name: LALITHA MARCELINO MR#: [id number] Study Date: 05/01/2018 Study Time: 09:53 AM Date of : 1960 Age: 58 year(s) Height: ( ) Weight: ( ) BSA: Gender: Male Examination: Limited Echo Indication: limited to eval ef Image Quality: Contrast: Requested by: Kane Talbot BP: / Heart Rate: Rhythm: Indication: limited to eval ef Procedure Staff Refrigeration Brazer/Solderer: Anita Bolaños [facility] Reading Physician: Carlos Etienne MD Requesting Provider: Conclusions: Normal size left ventricle. Low normal left ventricular systolic function. The ejection fraction is estimated to be 50-55 %. Mid to basal inferoseptal, mid and basal inferior, basal anteroseptal hypokinesis. Measurements: Chambers Valvular Assessment AV/MV Valvular Assessment TV/PV Normal Normal Normal Name Value Range Name Value Range Name Value Range EF Range: 50-55 % Continued Measurements: Findings: Left Ventricle: Normal size left ventricle. Low normal left ventricular systolic function. The ejection fraction is estimated to be 50-55 %. Mid to basal inferoseptal, mid and basal inferior, basal anteroseptal hypokinesis. (No Signature Object) Patient: LALITHA MARCELINO Study Date: 05/01/2018 Page 1 of 1 09:53 AM [id number]
[2018-05-01] MEDS: ceFAZolin 2 GM/DEXTROSE 100 ML IV SCH (18:21)
[2018-05-01] MEDS ORDERED: ALBUMIN 5% 250 ML BOTTLE IV ONE (23:31)
[2018-05-02] MEDS: PETROLAT,WHT/MIN OIL/SOD CHL 3.5 GM OPHT.OINT EACHEYE SCH ×4 (01:09→17:48)
[2018-05-02] MEDS: ceFAZolin 2 GM/DEXTROSE 100 ML IV SCH ×3 (02:51→18:12)
[2018-05-02 05:38] LABS: INR 2.24 (0.83-1.16); PROTIME(PATIENT) 24.8 SEC (12.0-15.0)
[2018-05-02 05:44] LABS: PLATELET COUNT 64 10^3/uL (150-400)
[2018-05-02] MEDS ORDERED: FUROSEMIDE 20 MG/2 ML VIAL IVP ONE (06:15)
[2018-05-02] MEDS ORDERED: FUROSEMIDE 40 MG TAB PO ONE (08:00)
[2018-05-02] MEDS ORDERED: FUROSEMIDE 40 MG/4 ML VIAL IVP ONE (08:30)
--- NOTE | 2018-05-02 08:30 | PDINTPN ---
Telecom Billing Analyst Progress Note Assessment/Plan: Assessment/plan: * Status post VFib cardiac arrest. * Coronary artery disease-status post PCI to diagonal * HACA protocol-currently being cooled on ECMO. Currently warm -hold all sedation and paralytics -Neurology to see * Acute hypercarbic and hypoxemic respiratory failure secondary to above- currently on ECMO. Excellent oxygenation. PCO2 low -will continue lung protective mechanisms. -to OR today to removed patient from ECMO * Bradycardia-resolved * ECMO-per auto servicer. Will likely continue until after patient has warmed * Metabolic/lactic acidosis-improved. * Hypernatremia-improved * Shock-cardiogenic. Resolved * Acute renal failure-creatinine up to 1.5 today -per Nephrology * Sedation-sedation and paralytic on hold * VTE prophylaxis * Stress ulcer prophylaxis Subjective: Sedated on paralytic Objective: Vital Signs Temp Pulse Resp BP Pulse Ox 35 C L 82 26 H 124/53 H 100 05/02/18 05:00 05/02/18 05:00 05/02/18 05:00 05/02/18 05:00 05/02/18 05:00 Laboratory Results 05/02/18 05:00 05/02/18 05:00 05/01/18 05/02/18 05/03/18 05:59 05:59 05:59 Intake Total 1544 5136.7 Output Total 2755 5075 Balance -1211 61.7 PT 24.8 SEC (12.0-15.0) H 05/02/18 05:00 INR 2.24 (0.83-1.16) H 05/02/18 05:00 Laboratory Results 05/02/18 05:00 05/02/18 05:00 05/02/18 05/02/18 05/02/18 05:00 05:00 05:00 PT 24.8 SEC H SEC (12.0 - 15.0) INR 2.24 H (0.83 - 1.16) APTT 73.7 SEC H SEC (23.0 - 38.0) Patient Temperature 37.0 DEGREES DEGREES pCO2 21 mmHg L mmHg (34 - 38) pO2 429 mmHg H mmHg (65 - 75) Total CO2 16 mEq/L L mEq/L (23 - 27) ABG pH 7.48 H (7.35 - 7.45) ABG PO2/FiO2 Ratio 1073 RATIO RATIO ABG HCO3 16 mEq/L L mEq/L (22 - 26) ABG O2 Saturation 100 % H % (92 - 95) ABG Base Excess -6.4 mEq/L L mEq/L (-2.5 - 2.5) ABG Lactic Acid 6.4 mmol/L H mmol/L (0.5 - 1.6) O2 Concentration % 40 % % Respiration Rate 26 Set Respiration Rate 26 Assist Control YES Tidal Volume 350 PEEP 7 Calcium 6.5 mg/dL L mg/dL (8.5 - 10.4) Phosphorus 4.3 mg/dL mg/dL (2.5 - 4.5) Magnesium 1.6 mg/dL mg/dL (1.6 - 2.3) Total Bilirubin 1.5 mg/dL H mg/dL (0.1 - 1.4) AST 98 IU/L H IU/L (17 - 59) ALT 76 IU/L H IU/L (21 - 72) Alkaline Phosphatase 37 IU/L L IU/L (38 - 126) Chest m-lwn-potvqguk by myself. Endotracheal tube and central line in good position. Marked improvement in lung aeration and diminished pulmonary edema - Time Spent With Patient Time Spent With Patient: 35 min of critical care time spent with patient. Case discussed with family, surgery, Respiratory therapy and Nursing Physical Exam - Physical Exam General Appearance: other (Sedated), No alert EENT: PERRL/EOMI, ET tube Neck: non-tender, supple Respiratory: crackles (Basilar), No respiratory distress, No wheezing Cardiac/Chest: normal peripheral pulses, regular rate, rhythm Peripheral Pulses: 2+: carotid (R), carotid (L), femoral (R), femoral (L), dorsalis-pedis (R), dorsalis-pedis (L) Abdomen: normal bowel sounds, non-tender, soft Male Genitalia: deferred Rectal: deferred Skin: normal color, warm/dry Extremities: normal inspection Neuro/Psych: No alert ICD10 Worksheet Patient Problems: Problems Problem Status Onset CAD in [place] artery Acute Cardiac arrest with ventricular fibrillation Acute s/p AV ECMO, femorals Acute ~04/30/18 Elevated troponin I level Acute Syncope Acute Ventricular fibrillation Acute
[2018-05-02] MEDS: FAMOTIDINE 20 MG/NACL 50 ML IV SCH ×2 (08:39→21:18)
--- NOTE | 2018-05-02 08:41 | SOAPPROG ---
SOAP Progress Note Assessment/Plan: POD #2: s/p VA ECMO via right common femoral artery & left common femoral vein - Pt to be decannulated in OR today Subjective: unresponsive (sedated/paralyzed) Objective: Vital Signs Temp Pulse Resp BP Pulse Ox 35 C L 82 26 H 124/53 H 100 05/02/18 05:00 05/02/18 05:00 05/02/18 05:00 05/02/18 05:00 05/02/18 05:00 Laboratory Results 05/02/18 05:00 05/02/18 05:00 05/01/18 05/02/18 05/03/18 05:59 05:59 05:59 Intake Total 1544 5136.7 Output Total 2755 5075 Balance -1211 61.7 PT 24.8 SEC (12.0-15.0) H 05/02/18 05:00 INR 2.24 (0.83-1.16) H 05/02/18 05:00 Physical Exam - Physical Exam General Appearance: unresponsive EENT: ET tube Neck: normal inspection Respiratory: No respiratory distress Cardiac/Chest: regular rate, rhythm Abdomen: non-tender, soft, No distended Skin: normal color, warm/dry Extremities: No pedal edema Neuro/Psych: other (unresponsive) ICD10 Worksheet Patient Problems: Problems Problem Status Onset CAD in [place] artery Acute Cardiac arrest with ventricular fibrillation Acute s/p AV ECMO, femorals Acute ~04/30/18 Elevated troponin I level Acute Syncope Acute Ventricular fibrillation Acute
[2018-05-02] MEDS ORDERED: ALBUMIN 5% 500 ML BOTTLE IV ONE (09:39)
[2018-05-02] MEDS ORDERED: ALBUMIN 5% 250 ML BOTTLE IV ONE ×2 (09:40→09:52)
--- NOTE | 2018-05-02 09:56 | NEUROPROG ---
Assessment: [id number] - Neurology Consult: - CC: Anoxic Brain Injury from Cardiac Arrest - HPI: 05/02/18: Pt had cardiac arrest on 04/30/18 felt to be from underlying heart disease. At home where he had been normal then called his to help him and went down. CPR started immediately. EMS arrived and defibrillated him. He was also given epi and amiodarone. Pt brought to [facility] ER and then sent to cardiac cath were stent was placed. Pt intubated and sent to ICU for HACA. He completed HACA on 05/01/18. I initially saw pt on 05/02/18. Neurologic exam showed showed patient lying in bed minimally responsive (did have corneal and pupillary responses). Will need to wait for 72 hours post-cardiac arrest to make definitive prognosis if he does not clearly improve before then. 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 II: PERRL, VF cant be tested . III/IV/: eyes conjugate . V/VII: corneal reflex intact . VIII: hearing cant be tested . IX/X/XII: pt intubated so cannot assess . XI: SCM cannot be tested - Motor: . Tone: normal tone in all 4 extremity . Strength/Sensation: no withdrawal to pain - Coord: cannot assess - Gait: cannot assess - Labs: 05/01/18- Potassium 3.9 - Rads: 04/30/18- CXR: Alveolar opacities with upper lobe predominance, right greater than left. Differential considerations include ARDS, pulmonary edema, hemorrhage , or pneumonia (I personally visualized the images on 05/01/18) - Assessment: 1. Anoxic Brain Injury from cardiac arrest on 04/30/18 - 2. CAD - Plan: - Prognosis guarded, will need 72 hour post-cardiac arrest neurologic exam (05/04) to give full prognosis unless pt clearly improves before then - Neurology will continue to follow closely Objective: Vital Signs Temp Pulse Resp BP Pulse Ox 35 C L 89 28 H 124/53 H 93 05/02/18 05:00 05/02/18 08:00 05/02/18 08:00 05/02/18 05:00 05/02/18 08:00 Laboratory Results 05/02/18 05:00 05/02/18 05:00 05/01/18 05/02/18 05/03/18 05:59 05:59 05:59 Intake Total 1544 5136.7 Output Total 2755 5075 Balance -1211 61.7 PT 24.8 SEC (12.0-15.0) H 05/02/18 05:00 INR 2.24 (0.83-1.16) H 05/02/18 05:00 Allergies/Adverse Reactions: No Known Allergies Allergy (Unverified 03/30/15 15:04)
--- NOTE | 2018-05-02 10:12 | SOAPPROG ---
SOAP Progress Note Assessment/Plan: Assessment: 1. Hjg-bp-rtotnvms cardiac arrest with bystander CPR 2. Acute coronary syndrome PCI of the diagonal 3. Known coronary disease history of PCI of the right coronary in the setting of sudden 4. Hyperlipidemia 5. Respiratory failure on ECMO 6. GI bleeding Procedures: Left heart catheterization PCI and stenting of the diagonal, echocardiography, placement of hypothermia catheter, ECMO Consultants: Umesh Lu 05/01/18 14:46 Impression: Prognosis guarded: Day 1. On ECMO. Patient remains paralyzed and sedated. Stable hemodynamics off pressors. Echocardiogram today shows stable ejection fraction. Plan: Continue hypothermia protocol with gentle warming overnight. Neurologic evaluation. Continued ECMO support for at least 24 hr here. If the patient shows neurologic improvement, considerations for transfer to long-term ECMO center. Reassess need for ECMO tomorrow. Ventilation/oxygenation driving discussion at this point. Questions were answered with the patients family. 05/02/18 10:10 Impression: Substantial neurologic improvement overnight with patient responsive to commands moving upper extremities and opening eyes. Stable hemodynamics off pressors. Plan to remove ECMO today continue aggressive ICU care. No further cardiac recommendations today. Continue aggressive dual antiplatelet therapy. Will need to discuss long-term prevention as he improves. This will include resumption of PC SK 9 inhibitor as well as considerations for ICD with 2 episodes of sudden . Discussed with Dr. Díaz. Subjective: Opening eyes to command. Moving extremities to command. Objective: Vital Signs Temp Pulse Resp BP Pulse Ox 35 C L 89 28 H 124/53 H 93 05/02/18 05:00 05/02/18 08:00 05/02/18 08:00 05/02/18 05:00 05/02/18 08:00 Laboratory Results 05/02/18 05:00 05/02/18 05:00 05/01/18 05/02/18 05/03/18 05:59 05:59 05:59 Intake Total 1544 5136.7 Output Total 3505 5088 Balance -1211 61.7 PT 24.8 SEC (12.0-15.0) H 05/02/18 05:00 INR 2.24 (0.83-1.16) H 05/02/18 05:00 Physical Exam - Physical Exam General Appearance: other (Responsive) Respiratory: rhonchi Abdomen: soft Skin: warm/dry ICD10 Worksheet Patient Problems: Problems Problem Status Onset s/p AV ECMO, femorals Acute ~04/30/18 CAD in [place] artery Acute Elevated troponin I level Acute Syncope Acute Ventricular fibrillation Acute Cardiac arrest with ventricular fibrillation Acute
[2018-05-02] MEDS ORDERED: DEXMEDETOMIDINE HCL 400 MCG in NS 100 ML IV SCH (11:00)
[2018-05-02] MEDS: CHLORHEXIDINE GLUCONATE 15 ML UDL PO SCH ×2 (11:22→20:22)
[2018-05-02] MEDS: ASPIRIN EC 81 MG TAB PO SCH (11:22)
[2018-05-02] MEDS: PRASUGREL HCL 10 MG TAB PO SCH (11:30)
[2018-05-02] MEDS ORDERED: ALBUMIN 5% 250 ML IV ONE ×2 (11:30)
[2018-05-02] MEDS ORDERED: fentaNYL 100 MCG/2 ML INJ ONE ×2 (11:39→13:46)
[2018-05-02] MEDS ORDERED: PROPOFOL/EMULSION 500 MG/50 ML BOTTLE IV ONE (11:40)
--- NOTE | 2018-05-02 11:44 | PDANEPAE ---
ANE History of Present Illness here for ecmo decannulation ANE Past Medical History - Cardiovascular History Hx Hypertension: No Hx Arrhythmias: Yes Hx Coronary Artery / Peripheral Vascular Disease: Yes Hx CHF / Valvular Disease: Yes - Pulmonary History Hx Oxygen in Use at Home: No Hx Sleep Apnea: No - Endocrine History Hx Diabetes: No ANE Review of Systems Review of systems is: negative Review of Systems: - Exercise capacity Exercise capacity: <4 METS ANE Patient History - Allergies Allergies/Adverse Reactions: No Known Allergies Allergy (Unverified 03/30/15 15:04) - Home Medications Home medications: home medication list seen and reviewed Home Medications: Aspirin [Aspirin 81mg (*)] 81 mg PO DAILY 05/01/18 [Last Taken 04/30/18] Cholecalciferol Vit D3 [Vitamin D3 (*)] 1,000 units PO DAILY 05/01/18 [Last Taken Unknown] Herbals/Supplements -Info Only 1 ea PO DAILY 05/01/18 [Last Taken Unknown] Lisinopril [Zestril 2.5 mg (*)] 2.5 mg PO DAILY 05/01/18 [Last Taken 04/30/18] Multivitamins [Multivitamin (*)] 1 each PO DAILY 05/01/18 [Last Taken 04/30/18] Niacin [Slo-Niacin] 250 mg PO HS 05/01/18 [Last Taken Unknown] [place]-3 Fatty Acids [Fish Oil 1000 mg (*)] 1,000 mg PO DAILY 05/01/18 [Last Taken Unknown] - Smoking Hx Smoking Status: Never smoked ANE Labs/Vital Signs - Labs Result Diagrams: 05/02/18 05:00 05/02/18 05:00 - Vital Signs Blood Pressure: 91/39 Heart Rate: 83 Respiratory Rate: 25 O2 Sat (%): 94 Height: 180.34 cm Weight: 72.575 kg ANE Physical Exam - Airway Mouth exam: ETT in situ - Pulmonary Pulmonary: no respiratory distress (intubated) - Cardiovascular Cardiovascular: regular rate and rhythym - ASA Status ASA Status: IV ANE Anesthesia Plan Anesthesia Plan: general endotracheal anesthesia (in situ)
--- NOTE | 2018-05-02 11:58 | ASMTCMCOM ---
CM Note CM Note Notes: Letter prepared for patient's daughter, Baudilio to take to professors. CM following. Date Signed: 05/02/2018 11:55 AM Electronically Signed By:Nelsy King LCSW
[2018-05-02] MEDS ORDERED: VANCOMYCIN 1 GM VIAL ONE (12:23)
[2018-05-02] MEDS ORDERED: ePHEDrine SULFATE 25 MG/5 ML SYR ONE ×2 (12:31→13:18)
[2018-05-02] MEDS ORDERED: PHENYLEPHRINE HCL 100 MCG/ML SYR ONE ×2 (12:31→13:17)
[2018-05-02] MEDS ORDERED: PROTAMINE SULFATE 50 MG/5 ML VIAL IVP ONE (13:05)
[2018-05-02] MEDS ORDERED: CALCIUM CHLORIDE 1 GM/10 ML INJ ONE (14:02)
[2018-05-02] MEDS ORDERED: SODIUM BICARBONATE 50 MEQ/50 ML SYR ONE (14:02)
--- NOTE | 2018-05-02 14:47 | GOP ---
[f rep st] OPERATIVE REPORT DATE OF OPERATION: 05/02/2018 SURGEON: Reynaldo Tinajero DO FINANCIAL REP: Melinda Clements PA-C. ANESTHESIOLOGIST: Bryson Claudio MD. PREOPERATIVE DIAGNOSIS: Indwelling 15-Luxembourger right common femoral artery and left common femoral vei n cannulas for extracorporeal membrane oxygenation. POSTOPERATIVE DIAGNOSIS: Indwelling 15-Luxembourger right common femoral artery and left common femoral ve in cannulas for extracorporeal membrane oxygenation. PROCEDURE PERFORMED: Removal of cannulas with bovine pericardial patch repair of the left common fem oral artery with endarterectomy and removal of left common femoral vein cannula. FINDINGS: DESCRIPTION OF PROCEDURE: Patient was transferred to the OR from the ICU, and intubated with an ongo ing ECMO with a right common femoral and left common femoral vein cannula. The incision was placed d own over the cannula entrance site. Exposure of the artery proximally and distally was performed. T ape was placed around it. The patient was fully heparinized, and the cannulas were removed. I then debrided the edges of the entrance site. There was a disruption of the plaque, which was endarterect omized proximally with good flow with releasing the clamp. We then took a 1 x 0.8 cm bovine pericard ial patch and closed it primarily. Doppler revealed good distal flow as well as in the posterior tib ial. He did not have a dorsalis pedis that we could auscultate. The wound was closed in a standard fashion. I then removed the left common femoral vein cannula to close in the skin primarily over it. He was then transported to ICU in stable condition. /[id number]/MODL
[2018-05-02] MEDS ORDERED: FUROSEMIDE 100 MG/10 ML VIAL IVP ONE (15:16)
[2018-05-02] MEDS ORDERED: SODIUM BICARBONATE 50 MEQ/50 ML SYR IVP ONE (15:17)
[2018-05-02] MEDS ORDERED: D5W 1,000 ML IV SCH (15:30)
--- NOTE | 2018-05-02 15:52 | GIREPORT ---
[facility] Surgical Services - Endoscopy Department Patient Name: Shabbir Best Procedure Date: 05/02/2018 1:57 PM Patient Type: Inpatient Attending MD/ ER Physician: Romario Johnson MD Procedure: Upper GI endoscopy Indications: Hematochezia, Melena Providers: Romario Johnson MD Referring MD: Reynaldo Tinajero MD Medicines: General Anesthesia Complications: No immediate complications. Estimated blood loss: None. Description of Procedure: After obtaining informed consent, the endoscope was passed under direct vision. Throughout the procedure, the patient's blood pressure, pulse, and oxygen saturations were monitored continuously. The Endoscope was intro duced through the mouth, and advanced to the second part of duodenum. The [facility] er GI endoscopy was accomplished without difficulty. The patient tolerated th e procedure well. Findings: The examined esophagus was normal. Scattered moderate inflammation characterized by erythema, friability a nd granularity was found in the gastric body and in the gastric antrum. Food (residue) was found on the greater curvature of the gastric body. The examined duodenum was normal. Estimated Blood Loss: Estimated blood loss: none. Post Op Diagnosis: - Normal esophagus. - Gastritis. - Food (residue) in the stomach. - Normal examined duodenum. - No specimens collected. Recommendation: - Use Protonix (pantoprazole) 40 mg IV daily. - Return patient to ICU for ongoing care. - Thank you for allowing me to help in your patient's care. Do not hesi quintero to call with any questions. Attending Participation: I personally performed the entire procedure. Elizabeth Mcknight M.D Romario Johnson MD 05/02/2018 3:51:35 PM This report has been signed electronicallyMatthew MD Elizabeth Number of Addenda: 0 Note Initiated On: 05/02/2018 1:57 PM [email or web address]
--- NOTE | 2018-05-02 16:14 | SOAPPROG ---
SOAP Progress Note Assessment/Plan: Assessment/Plan: JAMES: Pt s/p cardiac arrest, was on ECMO and now off as of today. Cr was down to 1.1 but now is up to 2.1 post-op with some hyperkalemia, improving with medical management. - No emergent need for HD, but will monitor closely for HD needs. - Will treat hyperkalemia as below. - Labs show pt is dry, will add some D5W tonight. - Avoid hypotension and nephrotoxins. Hyperkalemia: will give bicarb and Lasix once and recheck. Hypernatremia: will start on D5W and continue to monitor. Shock: pt off pressors. Subjective: No acute events overnight. Pt went to OR today and removed from ECMO, also was extubated afterward. He is still having UOP, but Cr kassandra post-op and had some hyperkalemia post-op with K up to 6.4, now down to 5.5. Objective: Vital Signs Temp Pulse Resp BP Pulse Ox 36.6 C 79 23 H 105/41 L 94 05/02/18 15:00 05/02/18 15:00 05/02/18 15:00 05/02/18 15:00 05/02/18 15:00 Laboratory Results 05/02/18 05:00 05/02/18 11:28 05/01/18 05/02/18 05/03/18 05:59 05:59 05:59 Intake Total 1544 5136.7 Output Total 2755 5075 860 Balance -1211 61.7 -860 PT 24.8 SEC (12.0-15.0) H 05/02/18 05:00 INR 2.24 (0.83-1.16) H 05/02/18 05:00 General: alert and oriented, no acute distress Eyes: EOMI, PERRL OP: Clear CV: RRR Resp: labored respirations on oxymask Abd: Soft, NT/ND Ext: no edema BLE Neuro: CN II-XII grossly intact ICD10 Worksheet Patient Problems: Problems Problem Status Onset CAD in [place] artery Acute Cardiac arrest with ventricular fibrillation Acute s/p AV ECMO, femorals Acute ~04/30/18 Elevated troponin I level Acute Syncope Acute Ventricular fibrillation Acute
[2018-05-02] MEDS ORDERED: ORAL BALANCE GEL TUBE PO PRN (19:39)
[2018-05-03] MEDS: PETROLAT,WHT/MIN OIL/SOD CHL 3.5 GM OPHT.OINT EACHEYE SCH ×3 (00:07→12:06)
[2018-05-03] MEDS: ceFAZolin 2 GM/DEXTROSE 100 ML IV SCH ×3 (02:17→18:09)
[2018-05-03 06:26] LABS: PLATELET COUNT 44 10^3/uL (150-400)
--- NOTE | 2018-05-03 06:58 | SOAPPROG ---
SOAP Progress Note Assessment/Plan: Assessment: Plan: Objective: Vital Signs Temp Pulse Resp BP Pulse Ox 37.3 C 75 23 H 123/49 H 93 05/03/18 03:59 05/03/18 06:00 05/03/18 06:00 05/03/18 06:00 05/03/18 06:00 Laboratory Results 05/03/18 05:45 05/03/18 05:45 05/02/18 05/03/18 05/04/18 05:59 05:59 05:59 Intake Total 5136.7 2715 Output Total 5075 4560 Balance 61.7 -1845 PT 24.8 SEC (12.0-15.0) H 05/02/18 05:00 INR 2.24 (0.83-1.16) H 05/02/18 05:00 ICD10 Worksheet Patient Problems: Problems Problem Status Onset CAD in [place] artery Acute Cardiac arrest with ventricular fibrillation Acute s/p AV ECMO, femorals Acute ~04/30/18 Elevated troponin I level Acute Syncope Acute Ventricular fibrillation Acute
[2018-05-03] MEDS: CHLORHEXIDINE GLUCONATE 15 ML UDL PO SCH (08:04)
[2018-05-03] MEDS: FAMOTIDINE 20 MG/NACL 50 ML IV SCH (08:09)
[2018-05-03] MEDS ORDERED: POTASSIUM Cl (KCl) 50 ML IV ONE (09:00)
--- NOTE | 2018-05-03 09:13 | PDINTPN ---
Sales Technician Progress Note Assessment/Plan: Assessment/plan: * Status post VFib cardiac arrest. * Coronary artery disease-status post PCI to diagonal * HACA protocol-patient warmed. Off protocol. * Acute hypercarbic and hypoxemic respiratory failure secondary to above- markedly improved. Patient on minimal oxygen. -wean FiO2 as tolerated * Encephalopathy-patient awake and alert. Somewhat flat affect and slow to respond. * Bradycardia-resolved * ECMO-discontinued * Metabolic/lactic acidosis-improved. * Hypernatremia-improved * Shock-cardiogenic. Resolved -moved heart line * Acute renal failure-creatinine up to 2.3 today -per Nephrology -remove Olmedo * Sedation-sedation and paralytic on hold * VTE prophylaxis * Stress ulcer prophylaxis * Nutrition-none -speech to see Subjective: Comfortable in bed. Response to questions appropriately. Somewhat slow to respond and has a flat affect Objective: Vital Signs Temp Pulse Resp BP Pulse Ox 37.3 C 81 29 H 114/65 94 05/03/18 03:59 05/03/18 09:00 05/03/18 09:00 05/03/18 09:00 05/03/18 09:00 Laboratory Results 05/03/18 05:45 05/03/18 05:45 05/02/18 05/03/18 05/04/18 05:59 05:59 05:59 Intake Total 5136.7 2715 Output Total 5075 4560 375 Balance 61.7 -1845 -375 PT 24.8 SEC (12.0-15.0) H 05/02/18 05:00 INR 2.24 (0.83-1.16) H 05/02/18 05:00 - Time Spent With Patient Time Spent With Patient: 35 min of time spent with patient, over 1/2 involved with coordination of care or counseling. Case discussed with Nursing, Respiratory therapy and cardiothoracic surgery. Physical Exam - Physical Exam General Appearance: alert, no apparent distress EENT: PERRL/EOMI Neck: non-tender, supple Respiratory: crackles (Few scattered), No respiratory distress, No wheezing Cardiac/Chest: normal peripheral pulses, regular rate, rhythm Abdomen: normal bowel sounds, non-tender, soft Male Genitalia: deferred Rectal: deferred Skin: normal color, warm/dry Extremities: non-tender Neuro/Psych: alert, depressed affect, No normal mood/affect (Flat) ICD10 Worksheet Patient Problems: Problems Problem Status Onset CAD in [place] artery Acute Cardiac arrest with ventricular fibrillation Acute s/p AV ECMO, femorals Acute ~04/30/18 Elevated troponin I level Acute Syncope Acute Ventricular fibrillation Acute
[2018-05-03] MEDS: ASPIRIN EC 81 MG TAB PO SCH (11:23)
[2018-05-03] MEDS: PRASUGREL HCL 10 MG TAB PO SCH (11:23)
--- NOTE | 2018-05-03 11:45 | SOAPPROG ---
SOAP Progress Note Assessment/Plan: Assessment/Plan: 58 y/o M s/p cardiac arrest on ECMO with JAMES, non-oliguric. JAMES: - baseline Cr unknown but was down to 1.1 - Cr currently stable at 2.2 with good UO - check Crystal today - No emergent need for HD, but will monitor closely for HD needs - Avoid hypotension and nephrotoxins Hyperkalemia: Improved with UO. Hold further diuretics for now give bicarb up to 30. Hypocalcemia: Albumin >3. Will give IV 1g now. Hypernatremia: Given large bolus d5 this am and taking po. Repeat Na and would not correct more than 10mEq today. Shock: Keep MAP>65, off pressors. CT surgery following. Will continue to follow, please contact if ?'s. 05/03/18 12:49 05/03/18 12:51 05/03/18 12:51 Subjective: Patient made >5L UO last night. Up to chair and starting to take po. Objective: Vital Signs Temp Pulse Resp BP Pulse Ox 37.3 C 81 29 H 113/60 92 05/03/18 03:59 05/03/18 10:00 05/03/18 10:00 05/03/18 10:00 05/03/18 10:00 Laboratory Results 05/03/18 05:45 05/03/18 05:45 05/02/18 05/03/18 05/04/18 05:59 05:59 05:59 Intake Total 5136.7 2715 350 Output Total 5075 4560 725 Balance 61.7 -1845 -375 PT 24.8 SEC (12.0-15.0) H 05/02/18 05:00 INR 2.24 (0.83-1.16) H 05/02/18 05:00 Physical Exam - Physical Exam General Appearance: WD/WN, alert, mild distress EENT: PERRL/EOMI Neck: non-tender, full range of motion, supple Respiratory: decreased breath sounds Cardiac/Chest: regular rate, rhythm Abdomen: normal bowel sounds, non-tender, soft Skin: diaphoresis Extremities: normal range of motion, non-tender Neuro/Psych: alert, normal mood/affect, oriented x 3 ICD10 Worksheet Patient Problems: Problems Problem Status Onset CAD in [place] artery Acute Cardiac arrest with ventricular fibrillation Acute s/p AV ECMO, femorals Acute ~04/30/18 Elevated troponin I level Acute Syncope Acute Ventricular fibrillation Acute
--- NOTE | 2018-05-03 12:50 | PDCARPN ---
Cardiology Progress Note Assessment/Plan: Assessment: ACS VF arrest Plan: 1. Post PCI, continue prasugrel and ASA. 2. Will introduce BB pre discharge 3. Patient has had 2 episodes of cardiac arrest requiring resuscitation, most recent episode was without warning and performed CPR resulting in good outcome. Given recurrent ventricular fibrillation with acute coronary syndrome , ICD should be placed since patient did not have chest pain prior to current ACS episode. This was discussed with , patient not fully comprehending the situation but is agreeable to ICD. 05/03/18 12:48 Subjective: The patient is still somewhat confused and amnestic around events of past 4 days. at bedside. Reviewed/Discussed With: family, multidisciplinary team Time Spent with Patient: greater than 35 minutes Time Spent with Patient: Greater than 35 minutes spent on this patients care, greater than 50% of time spent counseling, educating, and coordinating care regarding the above mentioned plan. Objective: Vital Signs (8 Hrs) Temp Pulse Resp BP Pulse Ox 05/03/18 12:00 36.6 C 70 20 113/47 L 97 05/03/18 10:00 81 29 H 113/60 92 05/03/18 09:00 81 29 H 114/65 94 05/03/18 08:00 72 24 H 116/46 L 94 05/03/18 07:00 68 21 H 107/41 L 97 05/03/18 06:00 75 23 H 123/49 H 93 05/03/18 05:00 77 25 H 108/42 L 94 Intake/Output (24 Hrs) 05/02/18 05/03/18 05/04/18 11:59 11:59 11:59 Intake Total 4636.7 3065 Output Total 4855 4425 Balance -218.3 -1360 Intake: Oral (ml) 350 IV Intake (ml) 1101 1215 IV Infused (ml) 2860.7 800 Albumin 5% 500 ml @ As 500 Directed IV ONCE ONE Rx#: [id number] Albumin 5% 500 ml @ As 500 Directed IV ONCE ONE Rx#: [id number] Albumin 5% 500 ml @ As 500 Directed IV ONCE ONE Rx#: [id number] Albumin 5% 500 ml @ As 500 Directed IV ONCE ONE Rx#: [id number] D5w 1,000 ml @ 50 mls/hr 800 IV CONT [facility] Rx#: [id number] DOPamine/DEXTROSE 250 ml 174 @ Per Protocol IV CONT [facility] Rx#:[id number] Heparin/Dextrose 500 ml @ 227 As Directed IV CONT [facility] Rx#:[id number] Norepinephrine Bitartrate 116 16 mg In Ns 250 ml @ Per Protocol IV CONT [facility] Rx# :[id number] Propofol/Emulsion 100 ml 176.9 @ Per Protocol IV CONT [facility] Rx#:[id number] Vecuronium [place] 50 mg 104.2 In D5w 50 ml @ Per Protocol IV CONT [facility] Rx#: [id number] fentaNYL 1,000 mcg In Ns 62.6 100 ml @ Per Protocol IV CONT [facility] Rx#:[id number] Packed Red Blood Cells ( 675 ml) Whole Blood (ml) 700 Output: Urine (ml) 4855 4425 Bedside Commode 200 Catheter 4855 4075 Urinal 150 OG Tube Output (ml) 0 Large Bore (>12 [place]) 0 Oral Stomach Other: Weight 72.575 kg 78.6 kg Number of Stools Bedside Commode 1 Result Diagrams: 05/03/18 05:45 05/03/18 05:45 Cardiac Labs: Cardiac Lab Results (72 Hrs) 05/01/18 05/01/18 04/30/18 10:00 04:00 19:30 CK-MB (CK-2) Fraction 10.00 H 18.10 H 15.70 H Troponin I 4.500 H 11.000 H 4.960 H 04/30/18 04/30/18 04/30/18 17:00 16:05 15:42 CK-MB (CK-2) Fraction 7.73 H 22.30 H Troponin I 1.300 H 6.080 H 0.070 H Telemetry: NSR, close coupled PVCs. ICD10 Worksheet Patient Problems: Problems Problem Status Onset s/p AV ECMO, femorals Acute ~04/30/18 CAD in [place] artery Acute Elevated troponin I level Acute Syncope Acute Ventricular fibrillation Acute Cardiac arrest with ventricular fibrillation Acute
[2018-05-03] MEDS ORDERED: CALCIUM GLUCONATE 50 ML IV ONE (12:53)
[2018-05-03] MEDS ORDERED: POTASSIUM Cl (KCl) 100 ML IV ONE (14:15)
--- NOTE | 2018-05-03 14:48 | NEUROPROG ---
Assessment: [id number] - Neurology Consult: - CC: Possible Anoxic Brain Injury from Cardiac Arrest - Narrative Summary: 05/02/18: Pt had cardiac arrest on 04/30/18 felt to be from underlying heart disease. At home where he had been normal then called his to help him and went down. CPR started immediately. EMS arrived and defibrillated him. He was also given epi and amiodarone. Pt brought to [facility] ER and then sent to cardiac cath were stent was placed. Pt intubated and sent to ICU for HACA. He completed HACA on 05/01/18. I initially saw pt on 05/02/18. Neurologic exam showed showed patient lying in bed minimally responsive (did have corneal and pupillary responses). Will need to wait for 72 hours post-cardiac arrest to make definitive prognosis if he does not clearly improve before then. - HPI: F/U 05/03/18: Pt dramatically improved. He was extubated and has re-awoken. No focal neuro deficits. Pt confused but improving. Prognosis appears good at this time. No new complaints. 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 Differential considerations include ARDS, pulmonary edema, hemorrhage , or pneumonia - Assessment: 1. Possible Anoxic Brain Injury from cardiac arrest on 04/30/18 - 2. CAD - Plan: - Prognosis good - Neurology will continue to follow closely - 35 min spent with patient and nurse, majority of time discussing prognosis and treatment plan. Objective: Vital Signs Temp Pulse Resp BP Pulse Ox 36.6 C 81 29 H 122/60 H 93 05/03/18 12:00 05/03/18 14:00 05/03/18 14:00 05/03/18 14:00 05/03/18 14:00 Laboratory Results 05/03/18 05:45 05/03/18 13:00 05/02/18 05/03/18 05/04/18 05:59 05:59 05:59 Intake Total 5136.7 2715 740 Output Total 5091 4560 1100 Balance 61.7 -5531 -360 PT 24.8 SEC (12.0-15.0) H 05/02/18 05:00 INR 2.24 (0.83-1.16) H 05/02/18 05:00 Allergies/Adverse Reactions: No Known Allergies Allergy (Unverified 03/30/15 15:04)
--- NOTE | 2018-05-03 15:11 | ASMTCMCOM ---
CM Note CM Note Notes: 05/03/2018 Case Management Note Discussed pt during rounds this morning. Family present. Pt is now on 3L of O2. Awaiting therapy eval recommendations to assist with discharge plan. Case Management d/c poc: to be determined. Case Management to follow. Date Signed: 05/03/2018 03:08 PM Electronically Signed By:Ama Mondragon RN
[2018-05-03] MEDS: FAMOTIDINE 20 MG TAB PO SCH (20:01)
[2018-05-04] MEDS: ceFAZolin 2 GM/DEXTROSE 100 ML IV SCH ×2 (02:12→09:22)
[2018-05-04] MEDS ORDERED: POTASSIUM Cl (KCl) 100 ML IV ONE (09:00)
--- NOTE | 2018-05-04 09:21 | PDCARPN ---
Cardiology Progress Note Assessment/Plan: Assessment: ACS VF arrest Plan: 1. Post PCI, continue prasugrel and ASA. 2. Start low-dose beta-josette today. 3. Patient has had 2 episodes of cardiac arrest requiring resuscitation, most recent episode was without warning and performed CPR resulting in good outcome. Given recurrent ventricular fibrillation with acute coronary syndrome , ICD should be placed since patient did not have chest pain prior to current ACS episode. This was discussed with , patient not fully comprehending the situation but is agreeable to ICD. Tentatively plan ICD on Saturday. 05/04/18 09:20 Subjective: Does not remember our conversation from yesterday. Reports no complaints. Reviewed/Discussed With: multidisciplinary team Time Spent with Patient: greater than 25 minutes Time Spent with Patient: Greater than 25 minutes spent on this patients care, greater than 50% of time spent counseling, educating, and coordinating care regarding the above mentioned plan. Objective: Vital Signs (8 Hrs) Temp Pulse Resp BP Pulse Ox 05/04/18 06:00 77 19 134/66 H 92 05/04/18 04:00 36.8 C 74 18 115/60 94 05/04/18 02:00 92 16 117/71 92 Intake/Output (24 Hrs) 05/02/18 05/03/18 05/04/18 11:59 11:59 11:59 Intake Total 4636.7 3065 3529 Output Total 4855 4425 1075 Balance -218.3 -1360 2454 Intake: Oral (ml) 350 1990 IV Intake (ml) 1101 1215 1539 IV Infused (ml) 2860.7 800 Albumin 5% 500 ml @ As 500 Directed IV ONCE ONE Rx#: [id number] Albumin 5% 500 ml @ As 500 Directed IV ONCE ONE Rx#: [id number] Albumin 5% 500 ml @ As 500 Directed IV ONCE ONE Rx#: [id number] Albumin 5% 500 ml @ As 500 Directed IV ONCE ONE Rx#: [id number] D5w 1,000 ml @ 50 mls/hr 800 IV CONT [facility] Rx#: [id number] DOPamine/DEXTROSE 250 ml 174 @ Per Protocol IV CONT [facility] Rx#:[id number] Heparin/Dextrose 500 ml @ 227 As Directed IV CONT [facility] Rx#:[id number] Norepinephrine Bitartrate 116 16 mg In Ns 250 ml @ Per Protocol IV CONT [facility] Rx# :[id number] Propofol/Emulsion 100 ml 176.9 @ Per Protocol IV CONT [facility] Rx#:[id number] Vecuronium [place] 50 mg 104.2 In D5w 50 ml @ Per Protocol IV CONT [facility] Rx#: [id number] fentaNYL 1,000 mcg In Ns 62.6 100 ml @ Per Protocol IV CONT [facility] Rx#:[id number] Packed Red Blood Cells ( 675 ml) Whole Blood (ml) 700 Output: Urine (ml) 4855 4425 1075 Bedside Commode 200 500 Catheter 4855 4075 Urinal 150 575 OG Tube Output (ml) 0 Large Bore (>12 [place]) 0 Oral Stomach Other: Weight 72.575 kg 78.6 kg Number of Voids Bedside Commode 1 Toilet 8 Urinal 4 Number of Stools Bedside Commode 1 1 Urinal 2 Result Diagrams: 05/03/18 05:45 05/04/18 03:57 Cardiac Labs: Cardiac Lab Results (72 Hrs) 05/01/18 04/30/18 10:00 16:05 CK-MB (CK-2) Fraction 10.00 H 22.30 H Troponin I 4.500 H 6.080 H Telemetry: Normal sinus rhythm. Nonsustained ventricular tachycardia ICD10 Worksheet Patient Problems: Problems Problem Status Onset s/p AV ECMO, femorals Acute ~04/30/18 CAD in [place] artery Acute Elevated troponin I level Acute Syncope Acute Ventricular fibrillation Acute Cardiac arrest with ventricular fibrillation Acute
[2018-05-04] MEDS: PRASUGREL HCL 10 MG TAB PO SCH (09:22)
[2018-05-04] MEDS: FAMOTIDINE 20 MG TAB PO SCH ×2 (09:22→21:25)
[2018-05-04] MEDS: ASPIRIN EC 81 MG TAB PO SCH (09:22)
--- NOTE | 2018-05-04 09:30 | PDINTPN ---
[facility] Progress Note Assessment/Plan: Assessment/plan: * Status post VFib cardiac arrest. -AICD to be placed likely on Saturday * Coronary artery disease-status post PCI to diagonal * V-tach-had run last night * HACA protocol-patient warmed. Off protocol. * Acute hypercarbic and hypoxemic respiratory failure secondary to above- markedly improved. Patient on minimal oxygen. -wean FiO2 as tolerated * Encephalopathy-patient awake and alert. Somewhat flat affect and slow to respond. Short-term memory currently impaired -follow * Bradycardia-resolved * ECMO-discontinued * Metabolic/lactic acidosis-resolved * Hypernatremia-improved * Shock-cardiogenic. Resolved -moved heart line * Acute renal failure-improved -per Nephrology -remove Olmedo * Sedation-discontinued * PT/OT * VTE prophylaxis * Stress ulcer prophylaxis * Nutrition-on p.o. Subjective: Sitting up in chair. Resting comfortably. Short-term memory appears to be lacking. Somewhat frustrated that he can't remember events. Objective: Vital Signs Temp Pulse Resp BP Pulse Ox 36.8 C 77 19 134/66 H 92 05/04/18 04:00 05/04/18 06:00 05/04/18 06:00 05/04/18 06:00 05/04/18 06:00 Laboratory Results 05/03/18 05:45 05/04/18 03:57 05/03/18 05/04/18 05/05/18 05:59 05:59 05:59 Intake Total 2715 3879 Output Total 4560 1800 Balance -1845 2079 PT 24.8 SEC (12.0-15.0) H 05/02/18 05:00 INR 2.24 (0.83-1.16) H 05/02/18 05:00 Laboratory Results 05/03/18 05:45 05/04/18 03:57 05/04/18 05/03/18 03:57 00:00 Calcium 7.3 mg/dL L mg/dL 7.1 mg/dL L mg/dL (8.5 - 10.4) (8.5 - 10.4) Phosphorus 2.7 mg/dL mg/dL (2.5 - 4.5) Albumin 3.4 g/dL L g/dL (3.5 - 5.0) - Time Spent With Patient Time Spent With Patient: 35 min of time spent with patient, over 1/2 involved with coordination of care or counseling. Case discussed with nursing and Cardiology Physical Exam - Physical Exam General Appearance: alert, no apparent distress EENT: PERRL/EOMI Neck: non-tender, supple Respiratory: chest non-tender, lungs clear, normal breath sounds Cardiac/Chest: normal peripheral pulses, regular rate, rhythm Peripheral Pulses: 2+: carotid (R), carotid (L), femoral (R), femoral (L), dorsalis-pedis (R), dorsalis-pedis (L) Abdomen: normal bowel sounds, non-tender, soft Male Genitalia: deferred Rectal: deferred Skin: normal color, warm/dry Extremities: normal range of motion, non-tender, normal inspection, normal capillary refill Neuro/Psych: no motor/sensory deficits, alert, depressed affect ICD10 Worksheet Patient Problems: Problems Problem Status Onset CAD in [place] artery Acute Cardiac arrest with ventricular fibrillation Acute s/p AV ECMO, femorals Acute ~04/30/18 Elevated troponin I level Acute Syncope Acute Ventricular fibrillation Acute
--- NOTE | 2018-05-04 11:39 | NEUROPROG ---
Assessment: [id number] - Neurology Consult: - CC: Possible Anoxic Brain Injury from Cardiac Arrest - Narrative Summary: 05/02/18: Pt had cardiac arrest on 04/30/18 felt to be from underlying heart disease. At home where he had been normal then called his to help him and went down. CPR started immediately. EMS arrived and defibrillated him. He was also given epi and amiodarone. Pt brought to [facility] ER and then sent to cardiac cath were stent was placed. Pt intubated and sent to ICU for HACA. He completed HACA on 05/01/18. I initially saw pt on 05/02/18. Neurologic exam showed showed patient lying in bed minimally responsive (did have corneal and pupillary responses). Will need to wait for 72 hours post-cardiac arrest to make definitive prognosis if he does not clearly improve before then. - F/U 05/03/18: Pt dramatically improved. He was extubated and has re-awoken. No focal neuro deficits. Pt confused but improving. Prognosis appears good at this time. No new complaints. - HPI: F/U 05/04/18: Pt doing well w/o focal neuro deficits. He does have some short term memory issues which will hopefully improve with time. Continue supportive care with PT/OT/Speech to determine any rehab needs. No further neurologic inpatient w/u needed, neurology will sign off. 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 Differential considerations include ARDS, pulmonary edema, hemorrhage , or pneumonia - Assessment: 1. Cardiac arrest on 04/30/18 with possible anoxic brain injury - 2. CAD - Plan: - Prognosis appears excellent for meaningful recover - Recommend PT/OT/SPeech to determine any rehab needs, hopefully his short term memory issues will improve over time - No further inpatient neurologic w/u needed, neurology will sign off - 35 min spent with patient and nurse, majority of time discussing prognosis and treatment plan. Objective: Vital Signs Temp Pulse Resp BP Pulse Ox 37.1 C 73 21 H 123/64 H 95 05/04/18 11:22 05/04/18 11:22 05/04/18 11:22 05/04/18 11:22 05/04/18 11:22 Laboratory Results 05/03/18 05:45 05/04/18 03:57 05/03/18 05/04/18 05/05/18 05:59 05:59 05:59 Intake Total 2715 3879 500 Output Total 4560 1800 Balance -1845 2079 500 PT 24.8 SEC (12.0-15.0) H 05/02/18 05:00 INR 2.24 (0.83-1.16) H 05/02/18 05:00 Allergies/Adverse Reactions: No Known Allergies Allergy (Unverified 03/30/15 15:04)
--- NOTE | 2018-05-04 12:48 | SOAPPROG ---
SOAP Progress Note Assessment/Plan: Assessment/Plan: 58 y/o M s/p cardiac arrest on ECMO with JAMES, non-oliguric. JAMES: - baseline Cr unknown but was down to 1.1 - Cr trending back down to 1.5 today with good UO - No emergent need for HD - Avoid hypotension and nephrotoxins - keep MAP>65 Hyperkalemia: Improved with UO. Bicarb improved to 26 and may use gentle diuretics as tolerated. Hypocalcemia: Albumin >3. Replete prn and keep K>4, Mg>2 Hypernatremia: Improved with D5 and po intake down to 144, continue to monitor. Holding fluids. Will continue to follow, please contact if ?'s. 05/04/18 12:46 Subjective: Making good UO. Had run of VT overnight. Objective: Vital Signs Temp Pulse Resp BP Pulse Ox 37.1 C 73 21 H 123/64 H 95 05/04/18 11:22 05/04/18 11:22 05/04/18 11:22 05/04/18 11:22 05/04/18 11:22 Laboratory Results 05/03/18 05:45 05/04/18 03:57 05/03/18 05/04/18 05/05/18 05:59 05:59 05:59 Intake Total 2715 3879 500 Output Total 4560 1800 Balance -1845 2079 500 PT 24.8 SEC (12.0-15.0) H 05/02/18 05:00 INR 2.24 (0.83-1.16) H 05/02/18 05:00 Physical Exam - Physical Exam General Appearance: WD/WN, alert, no apparent distress EENT: PERRL/EOMI Neck: non-tender, full range of motion, supple Respiratory: chest non-tender, decreased breath sounds Cardiac/Chest: regular rate, rhythm, tachycardia Abdomen: normal bowel sounds, non-tender, soft Skin: normal color, warm/dry Extremities: normal range of motion, non-tender Neuro/Psych: no motor/sensory deficits, alert ICD10 Worksheet Patient Problems: Problems Problem Status Onset CAD in [place] artery Acute Cardiac arrest with ventricular fibrillation Acute s/p AV ECMO, femorals Acute ~04/30/18 Elevated troponin I level Acute Syncope Acute Ventricular fibrillation Acute
--- NOTE | 2018-05-04 14:23 | GCON ---
[f rep st] CONSULTATION INTERNAL MEDICINE CONSULT DATE OF CONSULTATION: 05/04/2018 REFERRING PHYSICIAN: Steven Griggs MD REASON FOR REFERRAL: Medical management of patient status post cardiac arrest. HOSPITAL COURSE: The patient is a 58-year-old man with a history of coronary artery disease and prev ious V-fib arrest. This was associated with coronary artery disease. He underwent stent, and has do ne well since then. He was doing well until prior to admission when he was working on his computer a nd without warning, he had another cardiac arrest. His performed CPR resulting in good outcome, he was transported here. He was placed on the HACA protocol and has since re-warmed and has relativ margot good cognition; however, does have ongoing mild cognitive difficulties. We are being consulted t o assist Cardiology with ongoing medical care throughout the rest of his hospitalization since he has recovered to a point where he is able to transfer out of the intensive care unit. PAST MEDICAL HISTORY: 1. Coronary artery disease with previous PCI to RCA in 2016, in the setting of V-fib arrest. 2. Hypertension. 3. Dyslipidemia. Patient has been intolerant of statins due to myalgias. SOCIAL HISTORY: He is and has an excellent support system. He does not smoke, does not drin k, does not use illicit drugs. He does regular exercise. FAMILY HISTORY: Significant for coronary artery disease. ALLERGIES: No known drug allergies. MEDICATIONS: Please see medication reconciliation. PHYSICAL EXAMINATION: VITAL SIGNS: He is afebrile. Heart rate is in the 70s, blood pressure 123/64 , respirations 21. He is 95% on 3 L. GENERAL: He is a very pleasant 58-year-old man. He is in no distress, although somewhat anxious due to his current conditions. He is alert. HEENT: Pupils are equal. Extraocular movements intact. Sclerae anicteric. Mucous membranes moist. NECK: Supple wit hout adenopathy. HEART: Regular with a systolic murmur. LUNGS: He has good breath sounds with russell e basilar rales. ABDOMEN: Soft, nontender, nondistended. EXTREMITIES: No significant clubbing, cy anosis or edema. MUSCULOSKELETAL: No joint deformities or effusions. NEUROLOGIC: He has some shor t-term memory loss, but his speech is clear and he is moving all 4 extremities. SKIN: Intact. No r abdiaziz. PSYCHIATRIC: Mildly anxious. Otherwise, mood is appropriate. LABORATORY DATA: CBC shows mild anemia with a hemoglobin of 9.88, platelet count of 44. Chemistries are within normal limits, BUN 40 and creatinine of 1.5. DIAGNOSTICS: 1. He did have an upper endoscopy for a GI bleed showing gastritis on 05/02/2018. 2. Left heart catheterization showing widely patent mid LAD, 30% stenosis, principal diagonal 99% oc cluded. RCA stent open, status post stent to the principal diagonal. 3. Echocardiogram: Left ventricular ejection fraction 45% to 50%, with followup echo showing minima lly improved LVEF of 50% to 55%. 4. HACA protocol. ADMITTING PHYSICIAN: Cardiology. CONSULTATIONS: Include Intensive Care, Neurology, and Nephrology. ASSESSMENT AND PLAN: 1. Coronary artery disease, status post 99% lesion in the prime principal diagonal, status post sten t presenting in ventricular fibrillation arrest, status post HACA protocol with overall excellent imp rovement and prognosis. Patient is fairly asymptomatic with his coronary artery disease, both ventri cular fibrillation arrest, presented with minimal symptoms, so Dr. Griggs plans on placing an automatic implantable cardioverter defibrillator on Saturday or later in the week depending on patient's overall condition. 2. Acute hypercarbic and hypoxemic respiratory failure, secondary to above. Marked improvement did require ECMO during his HACA protocol, but it is continuing to require decreasing oxygen needs over t he course of this hospitalization. 3. Encephalopathy. Patient awake and alert, somewhat flat and slow to respond, and short-term memor y is impaired; however, hopefully this will improve over time. 4. Cardiogenic shock, resolved. removed. 5. Acute renal failure, improving. Appreciate Nephrology followup. 6. Deep vein thrombosis prophylaxis. Chemical prophylaxis on hold due to thrombocytopenia. 7. Thrombocytopenia. Suspect this may be due to the HACA protocol. Hopefully, this will improve ov er time. 8. Stress ulcer prophylaxis, on Pepcid. Thank you for the consultation. [facility] care [facility] the [id number]/MODL
[2018-05-04] MEDS ORDERED: FUROSEMIDE 20 MG/2 ML VIAL IVP ONE (21:15)
[2018-05-04] MEDS: METOPROLOL TARTRATE 25 MG TAB PO SCH (21:25)
[2018-05-04] MEDS: ACETAMINOPHEN 325 MG TAB PO PRN (21:25)
[2018-05-05] MEDS: MELATONIN 3 MG TAB PO SCH ×2 (04:10→20:06)
[2018-05-05 05:58] LABS: INR 1.13 (0.83-1.16); PROTIME(PATIENT) 14.7 SEC (12.0-15.0)
[2018-05-05 06:03] LABS: PLATELET COUNT 49 10^3/uL (150-400)
[2018-05-05] MEDS ORDERED: PROTOCOL POTASSIUM 1 DOSE MISC PRN (08:22)
[2018-05-05] MEDS ORDERED: POTASSIUM CL 10 MEQ TAB PO ONE ×2 (08:24→19:49)
[2018-05-05] MEDS: METOPROLOL TARTRATE 25 MG TAB PO SCH ×2 (08:28→20:06)
[2018-05-05] MEDS: ASPIRIN EC 81 MG TAB PO SCH (08:28)
[2018-05-05] MEDS: PRASUGREL HCL 10 MG TAB PO SCH (08:28)
[2018-05-05] MEDS: FAMOTIDINE 20 MG TAB PO SCH ×2 (08:29→20:06)
--- NOTE | 2018-05-05 10:12 | SOAPPROG ---
SOAP Progress Note Assessment/Plan: Assessment/Plan: JAMES: Pt s/p cardiac arrest, was on ECMO and now off as of 05/02. Cr was down to 1.1 but went up to 2.3 post-op on 05/02, has steadily improved since and now is back down to 1.3, good UOP, lytes ok. - No need for HD. - Continue to monitor. - Avoid hypotension and nephrotoxins. Hypokalemia: being replaced this am. Hypernatremia: improved with some D5W given, now stable with oral fluid intake alone. Thank you for the interesting consult. Nephrology will sign off at this time, please call if you have any additional questions or concerns. Subjective: No acute events overnight. Pt having good UOP, did have a dose of Lasix last night. He is breathing comfortably, notes he has poor appetite as food does not taste good. He is tired. Objective: Vital Signs Temp Pulse Resp BP Pulse Ox 36.6 C 66 22 H 120/57 L 93 05/05/18 07:47 05/05/18 07:47 05/05/18 07:47 05/05/18 07:47 05/05/18 07:47 Laboratory Results 05/05/18 05:25 05/05/18 05:25 05/04/18 05/05/18 05/06/18 05:59 05:59 05:59 Intake Total 3879 2355 Output Total 1800 1851 Balance 2079 504 PT 14.7 SEC (12.0-15.0) 05/05/18 05:25 INR 1.13 (0.83-1.16) 05/05/18 05:25 General: alert and oriented, no acute distress Eyes: EOMI, PERRL OP: Clear CV: RRR Resp: nonlabored respirations Abd: Soft, NT/ND Ext: no edema BLE Neuro: CN II-XII grossly intact, no asterixis Psych: cooperative ICD10 Worksheet Patient Problems: Problems Problem Status Onset CAD in [place] artery Acute Cardiac arrest with ventricular fibrillation Acute s/p AV ECMO, femorals Acute ~04/30/18 Elevated troponin I level Acute Syncope Acute Ventricular fibrillation Acute
--- NOTE | 2018-05-05 12:15 | PDCARPN ---
Cardiology Progress Note Chief Complaint: ACS VF Arrest Assessment/Plan: Assessment: 1. Acute coronary syndrome: Emergent diag PCI 2. VF arrest: second lifetime VF arrest, both of which have occurred in the setting of ACS. Plan for ICD implant 3. NSVT: 1 episode of asymptomatic NSVT noted on telemetry 05/04 Plan: 1. Plan for Biotronik single-chamber ICD implant with Dr. Griggs tomorrow 05/06/18 2. NPO after midnight Risks of transvenous ICD implantation was reviewed with patient and his family now that his memory is more intact Risks including, but not limited to , myocardial infarction, stroke, cardiac tamponade which may require emergent cardiac surgery, infection, bleeding, pneumothorax, lead dislodgement and risks of sedation/anesthesia were discussed. Long-term issues like ICD pocket erosion , lead failure, venous stenosis, superior vena cava syndrome, need for lead extraction were discussed. Need for close long-term follow-up in our device clinic was emphasized. Need for generator change was discussed. We discussed that appropriate and inappropriate ICD shocks can occur. The risk of inappropriate ICD shocks is higher in patients with atrial fibrillation. 05/05/18 12:18 Subjective: No issues overnight aside from difficult sleep, improving memory. Reviewed/Discussed With: multidisciplinary team Time Spent with Patient: greater than 35 minutes Time Spent with Patient: Greater than 35 minutes spent on this patients care, greater than 50% of time spent counseling, educating, and coordinating care regarding the above mentioned plan. Objective: Vital Signs (8 Hrs) Temp Pulse Resp BP Pulse Ox 05/05/18 11:02 36.8 C 72 22 H 122/54 H 95 05/05/18 07:47 36.6 C 66 22 H 120/57 L 93 05/05/18 04:00 36.6 C 58 L 28 H 117/51 L 93 Intake/Output (24 Hrs) 05/04/18 05/05/18 05/06/18 05:59 05:59 05:59 Intake Total 3879 2355 Output Total 1800 1851 Balance 2079 504 Intake: Oral (ml) 2340 2150 IV Intake (ml) 1539 205 Output: Urine (ml) 1800 1851 Bedside Commode 700 250 Catheter 375 Toilet 1 Urinal 725 1600 Other: Intake Quantity Yes Sufficient Number of Voids Bedside Commode 1 Toilet 8 1 Urinal 4 1 Number of Stools Bedside Commode 1 Urinal 2 Result Diagrams: 05/05/18 05:25 05/05/18 05:25 Telemetry: NSR - Physical Exam Constitutional: WDWN, healthy appearing, no apparent distress Ears, Nose, Mouth, Throat: moist mucous membranes, no oral ulcers, no thrush Cardiovascular: regular rate and rhythm, no rubs, no gallops Peripheral Pulses: 2+: dorsalis-pedis (R), dorsalis-pedis (L) Respiratory: no wheezes, other (bilateral crackles) Neurologic: AAOx3, CN II-XII grossly intact Psychiatric: cooperative, interactive, following commands, not anxious ICD10 Worksheet Patient Problems: Problems Problem Status Onset CAD in [place] artery Acute Cardiac arrest with ventricular fibrillation Acute s/p AV ECMO, femorals Acute ~04/30/18 Elevated troponin I level Acute Syncope Acute Ventricular fibrillation Acute
--- NOTE | 2018-05-05 12:16 | POSTANESTH ---
Post Anesthetic Evaluation Cardiovascular Status: Normal, Stable Respiratory Status: Normal, Stable Level of Consciousness/Mental Status: Can Participate in Eval Pain Control: Adequate, Prn Tx Ordered Nausea/Vomiting Control: Adequate, Prn Tx Ordered Complications Possibly Related to Anesthesia: None Noted
--- NOTE | 2018-05-05 14:21 | ASMTCMCOM ---
CM Note CM Note Notes: DIscussed pt's care in rounds. PT/OT recommending inpatient rehab, MD to put order in. Inpt rehab notified. Pt will need PCP appt at discharge. Plan: Inpatient rehab Date Signed: 05/05/2018 02:20 PM Electronically Signed By:BOB Mccarthy
--- NOTE | 2018-05-05 15:22 | HOSPPROG ---
Hospitalist Progress Note Assessment/Plan: 58-year-old man with a history of coronary artery disease status post previous VFib arrest secondary to occluded RCA is admitted with cardiac arrest at home. He collapsed at home and his performed CPR and call 911. He was brought in to [facility] underwent angiogram and had a stent placed to a principal circumflex. He was placed on HACA and required ECMO. After rewarming he has done extremely well with improved cognition daily, although he still has some short-term memory issues. # VFib arrest, overall excellent recovery. Due to coronary artery disease. Because he is relatively asymptomatic from his coronary artery disease and presents with VFib arrest Cardiology will place an AICD tomorrow. # coronary artery disease, patient has presented twice now with VFib arrest rather than any symptoms of chest pain. * Intolerant of statins in the past due to elevated CPK and myalgias * Followed by Dr. Levine who has been working with his insurance to get Repatha # hypertension # hyperlipidemia Disposition: Patient will get AICD prior to discharge. Will do an inpatient rehab consult for possible transfer after his acute hospital stay. Subjective: Overall patient doing well, does not remember meeting me yesterday although today he has much better affect and memory per his Objective: Vital Signs Temp Pulse Resp BP Pulse Ox 36.8 C 70 22 H 122/64 H 93 05/05/18 11:54 05/05/18 11:54 05/05/18 11:54 05/05/18 11:54 05/05/18 11:54 Laboratory Results 05/05/18 05:25 05/05/18 05:25 05/04/18 05/05/18 05/06/18 05:59 05:59 05:59 Intake Total 3879 2355 Output Total 1800 1851 Balance 2079 504 PT 14.7 SEC (12.0-15.0) 05/05/18 05:25 INR 1.13 (0.83-1.16) 05/05/18 05:25 - Physical Exam Constitutional: no apparent distress, not in pain Eyes: PERRL Ears, Nose, Mouth, Throat: moist mucous membranes Cardiovascular: regular rate and rhythym Respiratory: no respiratory distress, clear to auscultation Gastrointestinal: soft, non-tender abdomen Genitourinary: no bladder fullness Skin: warm, normal color Musculoskeletal: generalized weakness Neurologic: No facial droop Psychiatric: interacting appropriately ICD10 Worksheet Patient Problems: Problems Problem Status Onset s/p AV ECMO, femorals Acute ~04/30/18 CAD in [place] artery Acute Elevated troponin I level Acute Syncope Acute Ventricular fibrillation Acute Cardiac arrest with ventricular fibrillation Acute
[2018-05-06] MEDS: ACETAMINOPHEN 325 MG TAB PO PRN ×2 (00:43→21:18)
[2018-05-06 05:49] LABS: PLATELET COUNT 68 10^3/uL (150-400)
[2018-05-06 05:53] LABS: INR 1.11 (0.83-1.16); PROTIME(PATIENT) 14.5 SEC (12.0-15.0)
[2018-05-06] MEDS ORDERED: BACITRACIN IRRIGATION/NS 50,000 UNITS/1,000 ML BTL IRR ONE (06:00)
[2018-05-06] MEDS ORDERED: ceFAZolin 2 GM/DEXTROSE 100 ML IV ONE (06:00)
[2018-05-06] MEDS ORDERED: NS 1,000 ML IV ONE (06:00)
[2018-05-06] MEDS: METOPROLOL TARTRATE 25 MG TAB PO SCH ×2 (08:53→21:16)
[2018-05-06] MEDS ORDERED: POTASSIUM CL 10 MEQ TAB PO ONE (08:54)
--- NOTE | 2018-05-06 09:20 | PDGENHP ---
History & Physical Chief Complaint: VF arrest History of Present Illness: History of VF x2 in the setting of ACS without chest discomfort/angina. Relevant Physical Exam: General: A&0x4, no apparent distress. Respiratory: bilateral crackles. Cardiac: Regular rate and rhythm, +systolic mumur Cardiorespiratory Assessment: Proceed with implant of Biotronik single chamber ICD.
[2018-05-06] MEDS: FAMOTIDINE 20 MG TAB PO SCH ×2 (09:22→21:15)
[2018-05-06] MEDS: ASPIRIN EC 81 MG TAB PO SCH (09:22)
[2018-05-06] MEDS: PRASUGREL HCL 10 MG TAB PO SCH (09:22)
--- NOTE | 2018-05-06 09:24 | PDCARPN ---
Cardiology Progress Note Chief Complaint: VF arrest ACS Assessment/Plan: Assessment: 1. Acute coronary syndrome: s/p emergent diag PCI 2. VF arrest: second lifetime VF arrest, both of which have occurred in the setting of ACS. Plan for ICD implant today 3. NSVT: 1 episode of NSVT noted on telemetry 05/04 4. Anemia and thrombocytopenia: H&H continues to trend down. Platelets low, stable. Plan: 1. Plan for Biotronik single-chamber ICD implant today. CXR and device interrogation planned for tomorrow morning. Activity restrictions and exercise limitations reviewed with patient and his family in detail. 2. Recommend workup for anemia and thrombocytopenia, will defer to hospitalist/ IM service. 05/06/18 09:21 Subjective: Sore ribs and poor sleep, no other issues overnight Reviewed/Discussed With: family, multidisciplinary team Time Spent with Patient: greater than 35 minutes Time Spent with Patient: Greater than 35 minutes spent on this patients care, greater than 50% of time spent counseling, educating, and coordinating care regarding the above mentioned plan. Objective: Vital Signs (8 Hrs) Temp Pulse Resp BP Pulse Ox 05/06/18 07:22 37.3 C 60 20 128/58 H 93 05/06/18 04:00 36.9 C 60 24 H 117/55 L 92 Intake/Output (24 Hrs) 05/05/18 05/06/18 05/07/18 05:59 05:59 05:59 Intake Total 2355 600 200 Output Total 1851 625 250 Balance 504 -25 -50 Intake: Oral (ml) 2150 600 200 IV Intake (ml) 205 Output: Urine (ml) 1851 625 250 Bedside Commode 250 Toilet 1 Urinal 1600 625 250 Other: Intake Quantity Yes Yes Sufficient Number of Voids Toilet 1 Urinal 1 Result Diagrams: 05/06/18 05:30 05/06/18 05:30 - Physical Exam Constitutional: WDWN, healthy appearing, no apparent distress Ears, Nose, Mouth, Throat: moist mucous membranes, no oral ulcers, no thrush Cardiovascular: regular rate and rhythm, no rubs, no gallops, systolic murmur Peripheral Pulses: 2+: dorsalis-pedis (R), dorsalis-pedis (L) Respiratory: no wheezes, other (bilateral crackles) Gastrointestinal: normoactive bowel sounds, no tenderness, no masses Skin: no rashes, no abrasions, no ulcers, warm, no edema Neurologic: AAOx3, CN II-XII grossly intact Psychiatric: cooperative, interactive, following commands, not anxious ICD10 Worksheet Patient Problems: Problems Problem Status Onset CAD in [place] artery Acute Cardiac arrest with ventricular fibrillation Acute s/p AV ECMO, femorals Acute ~04/30/18 Elevated troponin I level Acute Syncope Acute Ventricular fibrillation Acute
--- NOTE | 2018-05-06 11:26 | PDANEPAE ---
ANE History of Present Illness here for ICD s/p VF arrest ECMO ANE Past Medical History - Cardiovascular History Hx Hypertension: No Hx Arrhythmias: Yes Hx Coronary Artery / Peripheral Vascular Disease: Yes Hx CHF / Valvular Disease: Yes - Pulmonary History Hx Oxygen in Use at Home: No Hx Sleep Apnea: No - Endocrine History Hx Diabetes: No - Renal History Hx Renal Disorders: No ANE Review of Systems Review of systems is: negative Review of Systems: - Exercise capacity Exercise capacity: >=4 METS ANE Patient History - Allergies Allergies/Adverse Reactions: No Known Allergies Allergy (Unverified 03/30/15 15:04) - Home Medications Home medications: home medication list seen and reviewed Home Medications: Aspirin [Aspirin 81mg (*)] 81 mg PO DAILY 05/01/18 [Last Taken 04/30/18] Cholecalciferol Vit D3 [Vitamin D3 (*)] 1,000 units PO DAILY 05/01/18 [Last Taken Unknown] Herbals/Supplements -Info Only 1 ea PO DAILY 05/01/18 [Last Taken Unknown] Lisinopril [Zestril 2.5 mg (*)] 2.5 mg PO DAILY 05/01/18 [Last Taken 04/30/18] Multivitamins [Multivitamin (*)] 1 each PO DAILY 05/01/18 [Last Taken 04/30/18] Niacin [Slo-Niacin] 250 mg PO HS 05/01/18 [Last Taken Unknown] Morven-3 Fatty Acids [Fish Oil 1000 mg (*)] 1,000 mg PO DAILY 05/01/18 [Last Taken Unknown] - NPO status NPO Status: no food or drink >8 hours - Smoking Hx Smoking Status: Never smoked ANE Labs/Vital Signs - Labs Result Diagrams: 05/06/18 05:30 05/06/18 05:30 - Vital Signs Vital Signs: reviewed preoperatively; see RN documention for details Blood Pressure: 128/58 Heart Rate: 60 Respiratory Rate: 20 O2 Sat (%): 93 Height: 180.34 cm Weight: 78.6 kg ANE Physical Exam - Airway Neck exam: FROM Mallampati Score: Class 1 - Pulmonary Pulmonary: no respiratory distress - Cardiovascular Cardiovascular: regular rate and rhythym - ASA Status ASA Status: III ANE Anesthesia Plan Anesthesia Plan: GA with mask
[2018-05-06] MEDS ORDERED: LIDOCAINE 1% 300 MG/30 ML SDV ONE (11:53)
[2018-05-06] MEDS ORDERED: BUPIVACAINE 0.75% 10 ML SDV ONE (11:54)
[2018-05-06] MEDS ORDERED: IOPAMIDOL (ISOVUE-300) 100 ML BTL ONE (11:54)
[2018-05-06] MEDS ORDERED: fentaNYL 100 MCG/2 ML INJ ONE (12:11)
[2018-05-06] MEDS ORDERED: PROPOFOL/EMULSION 500 MG/50 ML BOTTLE IV ONE (12:12)
[2018-05-06] MEDS ORDERED: PROPOFOL 200 MG/20 ML VIAL ONE (12:58)
--- NOTE | 2018-05-06 13:15 | EPPROC ---
Electrophysiology Procedure Note: PROCEDURE PERFORMED: 1. Implantation of an V Implantable Cardioverter Defibrillator 2. Subclavian vein angiography 3. Fluoroscopy INDICATION: Recurrent VF arrest (x2, 2 years apart) during ACS Patient has VF x 2, without any warning symptoms of chest pain See [facility] for further documentation PROCEDURE NOTE: Patient presented to the cardiac catheterization laboratory in a fasting, post absorptive state. Dr. Jordan Claudio administered sedation. The L infraclavicular area was prepped and draped in the usual sterile fashion. Lidocaine plus bupivacaine was used for local anesthesia. L subclavian venography was performed by injection of iodinated contrast into the L antecubital vein. This was done to assure patency of the vein and also to assess for any anatomical aberrations. Using a combination of blunt and sharp dissection and electrocautery, the dissection was carried down to the prepectoral fascia. A pocket was made in this anatomical plane. All bleeding was controlled with electrocautery. The pocket was packed with gauze soaked in antibiotic solution. Fluoroscopy was utilized during the entire procedure for venous access and placement of the lead. Using a direct stick technique the L extrathoracic axillary vein was accessed with 1 stick using the modified Seldinger technique. Placement of the guidewire into the venous system was confirmed by low-pressure blood return and also by visualizing the guidewire advancing into the inferior vena cava. A purse string suture was applied around the guidewire. One #8 Pashto sheath was advanced under fluoroscopic guidance over the guidewire. An active fixation ventricular ICD lead was advanced into the right ventricular apex and screwed in place. The peel away sheath was removed. Pacing thresholds, sensing parameters and lead impedances were measured. There was no diaphragmatic stimulation at maximum output. The lead was sutured to the prepectoral fascia with 3 nonabsorbable sutures. The gauze packing was removed from the ICD pocket. The pocket was again inspected for any bleeding. The lead was attached to the ICD securely. The ICD was inserted into the pocket and secured in place with a nonabsorbable suture. Fluoroscopy was performed in BRAY and ITALIAN planes to verify right sided placement of the lead. Also fluoroscopy of the ICD pocket was performed. Defibrillation testing was not performed. The ICD pocket was closed in 2 layers with vicryl and kendall. Appropriate dressing was applied. The patient left the cardiac catheterization laboratory in stable condition. Serial Numbers: 1. Device : Biotronik [id number] Pro MRI SN [id number] 2. Ventricular Lead: Biotronik Plexa ProMRI S65 SN [id number] Stimulation Thresholds & Impedance Measurements: 1. Ventricular Lead R 9.7 mV 516 ohm 0.3 V 0.4 ms Defibrillation testing: Not performed Pacing Parameters: 1. Pacing mode VVI 2. Lower rate 40 ppm Tachycardia therapy parameters: VT zone: Detection: 180 bpm First therapy : ATP 3 sequences Second therapy: _30_ Joule Subsequent therapies : 40 Joule VF zone : Detection: 200 bpm First therapy: 40 Joule Subsequent therapies: 40 Joule Patient Problems: Problems Problem Status Onset s/p AV ECMO, femorals Acute ~04/30/18 CAD in [place] artery Acute Elevated troponin I level Acute Syncope Acute Ventricular fibrillation Acute Cardiac arrest with ventricular fibrillation Acute
--- NOTE | 2018-05-06 13:25 | SOAPPROG ---
SOAP Progress Note Assessment/Plan: POD #6: s/p VA ECMO via right common femoral artery & left common femoral vein POD #4: decannulation with endarterectomy and bovine pericardial patch of right common femoral artery and removal of left common femoral vein cannula Called to EP lab to evaluate sutures remaining in left groin On exam: Right groin: wound C/D/I and soft. Left groin: clean and dry with two remaining loose sutures. Wound soft with 1- cm open area at level of skin, non-infected. Sutures cut with dry dressing placed. Will recheck tomorrow. Objective: Vital Signs Temp Pulse Resp BP Pulse Ox 37.3 C 60 20 128/58 H 93 05/06/18 07:22 05/06/18 11:26 05/06/18 11:26 05/06/18 11:26 05/06/18 11:26 Laboratory Results 05/06/18 05:30 05/06/18 05:30 05/05/18 05/06/18 05/07/18 05:59 05:59 05:59 Intake Total 2355 600 200 Output Total 1851 625 250 Balance 504 -25 -50 PT 14.5 SEC (12.0-15.0) 05/06/18 05:30 INR 1.11 (0.83-1.16) 05/06/18 05:30 ICD10 Worksheet Patient Problems: Problems Problem Status Onset CAD in [place] artery Acute Cardiac arrest with ventricular fibrillation Acute s/p AV ECMO, femorals Acute ~04/30/18 Elevated troponin I level Acute Syncope Acute Ventricular fibrillation Acute
--- NOTE | 2018-05-06 15:49 | CPEKG ---
Test Reason : OPEN Blood Pressure : / mmHG Vent. Rate : 058 BPM Atrial Rate : 059 BPM P-R Int : 170 ms QRS Dur : 098 ms QT Int : 468 ms P-R-T Axes : 077 065 106 degrees QTc Int : 460 ms Sinus rhythm Probable left ventricular hypertrophy Nonspecific T abnrm, anterolateral leads Confirmed by Steven Griggs ([id number]) on 05/06/2018 3:48:47 PM Referred By: SHEILA JIANG Confirmed By:Steven Griggs
--- NOTE | 2018-05-06 16:50 | HOSPPROG ---
Hospitalist Progress Note Assessment/Plan: 58-year-old man with a history of coronary artery disease status post previous VFib arrest secondary to occluded RCA is admitted with cardiac arrest at home. He collapsed at home and his performed CPR and call 911. He was brought in to [facility] underwent angiogram and had a stent placed to a principal circumflex. He was placed on HACA and required ECMO. After rewarming he has done extremely well with improved cognition daily, although he still has some short-term memory issues. #VFib arrest, overall excellent recovery. Due to coronary artery disease. s/p AICD coronary artery disease, patient has presented twice now with VFib arrest rather than any symptoms of chest pain. * Intolerant of statins in the past due to elevated CPK and myalgias * Followed by Dr. Levine who has been working with his insurance to get Repatha hypertension hyperlipidemia Disposition: Patient will get AICD prior to discharge. Will do an inpatient rehab consult for possible transfer after his acute hospital stay. Subjective: case d/w dr guadalupe. s/p AICD Objective: Vital Signs Temp Pulse Resp BP Pulse Ox 36.7 C 61 18 127/66 H 92 05/06/18 15:03 05/06/18 15:03 05/06/18 15:03 05/06/18 15:03 05/06/18 15:03 Laboratory Results 05/06/18 05:30 05/06/18 05:30 05/05/18 05/06/18 05/07/18 05:59 05:59 05:59 Intake Total 2355 600 1200 Output Total 1851 625 250 Balance 504 -25 950 PT 14.5 SEC (12.0-15.0) 05/06/18 05:30 INR 1.11 (0.83-1.16) 05/06/18 05:30 - Physical Exam Constitutional: no apparent distress Eyes: PERRL, anicteric sclera Ears, Nose, Mouth, Throat: moist mucous membranes, hearing normal Cardiovascular: regular rate and rhythym, no murmur, rub, or gallop Respiratory: no respiratory distress, no rales or rhonchi Gastrointestinal: normoactive bowel sounds, soft, non-tender abdomen Genitourinary: no bladder fullness, No fitzgerald in urethra Skin: warm, normal color Musculoskeletal: full muscle strength Neurologic: AAOx3, other Psychiatric: interacting appropriately ICD10 Worksheet Patient Problems: Problems Problem Status Onset CAD in [place] artery Acute Cardiac arrest with ventricular fibrillation Acute s/p AV ECMO, femorals Acute ~04/30/18 Elevated troponin I level Acute Syncope Acute Ventricular fibrillation Acute
[2018-05-06] MEDS: MELATONIN 3 MG TAB PO SCH (21:15)
[2018-05-07 08:46] LABS: PLATELET COUNT 103 10^3/uL (150-400)
[2018-05-07] MEDS ORDERED: POTASSIUM CL 10 MEQ TAB PO ONE (09:13)
--- NOTE | 2018-05-07 09:16 | PDCARPN ---
Cardiology Progress Note Chief Complaint: VF arrest x2 s/p ICD Assessment/Plan: Assessment: 1. Acute coronary syndrome: s/p emergent diag PCI 2. VF arrest: second lifetime VF arrest, both of which have occurred in the setting of ACS. Biotronik ICD implanted yesterday. Device interrogation this morning demonstrated normal device function. CXR this AM demonstrated excellent lead placement without delayed pneumo. 3. NSVT: 1 episode of NSVT noted on telemetry 05/04 4. Anemia and thrombocytopenia: H&H had been trending down, slightly improved today. Platelets low, stable. 2 bloody stools this AM Plan: 1. Left arm restrictions below the level of the shoulder x6 weeks. Continue to monitor for signs of hematoma or infection. 2. Device check and kendall removal with [facility] in 1 week. Follow-up with Dr. Griggs in 1 month. Keep dressing in place if it remains clean and dry - remove dressing and leave site open to air if it becomes saturated for any reason. 3. Defer to hospitalist service for further evaluation of anemia and thrombocytopenia 4. ID consult for further evaluation of fever 5. EP will sign off for now 05/07/18 10:31 Subjective: Shabbir is concerned that his baseline HR is 60-65bpm. Rib discomfort with deep breathing. No pain to left pectoral incision site. Reviewed/Discussed With: multidisciplinary team Time Spent with Patient: greater than 25 minutes Time Spent with Patient: Greater than 25 minutes spent on this patients care, greater than 50% of time spent counseling, educating, and coordinating care regarding the above mentioned plan. Objective: Vital Signs (8 Hrs) Temp Pulse Resp BP Pulse Ox 05/07/18 07:51 37.9 C 61 18 133/61 H 88 L 05/07/18 04:00 37.1 C 58 L 22 H 118/57 L 94 Intake/Output (24 Hrs) 05/06/18 05/07/18 05/08/18 05:59 05:59 05:59 Intake Total 600 2030 Output Total 625 1075 Balance -25 955 Intake: Oral (ml) 600 1530 IV Intake (ml) 500 Output: Urine (ml) 625 1075 Toilet 250 Urinal 625 825 Other: Weight 78.6 kg Intake Quantity Yes Sufficient Number of Voids Urinal 1 Result Diagrams: 05/07/18 08:15 05/07/18 08:15 - Physical Exam Constitutional: WDWN, healthy appearing, no apparent distress Ears, Nose, Mouth, Throat: moist mucous membranes, no oral ulcers, no thrush Cardiovascular: regular rate and rhythm, no rubs, no gallops, systolic murmur Peripheral Pulses: 2+: dorsalis-pedis (R), dorsalis-pedis (L) Respiratory: other (bilateral crackles) Gastrointestinal: other (bloody stool x2) Skin: no rashes, no abrasions, no ulcers, warm, no edema Neurologic: AAOx3, CN II-XII grossly intact Psychiatric: cooperative, interactive, following commands, not anxious ICD10 Worksheet Patient Problems: Problems Problem Status Onset CAD in [place] artery Acute Cardiac arrest with ventricular fibrillation Acute s/p AV ECMO, femorals Acute ~04/30/18 Elevated troponin I level Acute Syncope Acute Ventricular fibrillation Acute
[2018-05-07] MEDS: ASPIRIN EC 81 MG TAB PO SCH (09:51)
[2018-05-07] MEDS: PRASUGREL HCL 10 MG TAB PO SCH (09:51)
[2018-05-07] MEDS: FAMOTIDINE 20 MG TAB PO SCH ×2 (09:51→21:33)
[2018-05-07] MEDS: METOPROLOL TARTRATE 25 MG TAB PO SCH ×2 (09:51→21:33)
[2018-05-07] MEDS: ACETAMINOPHEN 325 MG TAB PO PRN (09:51)
--- NOTE | 2018-05-07 11:46 | CPEKG ---
Test Reason : OPEN Blood Pressure : / mmHG Vent. Rate : 059 BPM Atrial Rate : 059 BPM P-R Int : 175 ms QRS Dur : 082 ms QT Int : 520 ms P-R-T Axes : 085 058 073 degrees QTc Int : 516 ms Sinus rhythm Left atrial enlargement Anterior infarct, old Borderline ST elevation, lateral leads Prolonged QT interval Confirmed by Steven Griggs ([id number]) on 05/07/2018 11:46:31 AM Referred By: SHEILA JIANG Confirmed By:Steven Griggs
[2018-05-07] MEDS: ceFAZolin 2 GM/DEXTROSE 100 ML IV SCH ×2 (12:59→21:34)
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
--- NOTE | 2018-05-07 14:24 | HOSPPROG ---
Hospitalist Progress Note Assessment/Plan: 58-year-old man with a history of coronary artery disease status post previous VFib arrest secondary to occluded RCA is admitted with cardiac arrest at home. He collapsed at home and his performed CPR and call 911. He was brought in to [facility] underwent angiogram and had a stent placed to a principal circumflex. He was placed on HACA and required ECMO. After rewarming he has done extremely well with improved cognition daily, although he still has some short-term memory issues. #VFib arrest, overall excellent recovery. Due to coronary artery disease. s/p AICD confusion: he does appear to have some short term memory impairment fevers: low grade temps, started on cefazolin no clear source follow cbc, fever curve, cx data bloody diarrhea: check GI path panel coronary artery disease, patient has presented twice now with VFib arrest rather than any symptoms of chest pain. * Intolerant of statins in the past due to elevated CPK and myalgias * Followed by Dr. Levine who has been working with his insurance to get Repatha hypertension hyperlipidemia Disposition: s/p ICD per therapy, ok for home w home care Subjective: case d/w dr son. episode of bloody diarrhea this AM but no further details Objective: Vital Signs Temp Pulse Resp BP Pulse Ox 36.8 C 62 18 105/56 L 95 05/07/18 12:00 05/07/18 12:00 05/07/18 12:00 05/07/18 12:00 05/07/18 12:00 Laboratory Results 05/07/18 08:15 05/07/18 08:15 05/06/18 05/07/18 05/08/18 05:59 05:59 05:59 Intake Total 600 2030 Output Total 625 1075 Balance -25 955 PT 14.5 SEC (12.0-15.0) 05/06/18 05:30 INR 1.11 (0.83-1.16) 05/06/18 05:30 - Physical Exam Constitutional: no apparent distress, appears nourished Eyes: PERRL, anicteric sclera Ears, Nose, Mouth, Throat: moist mucous membranes, hearing normal Cardiovascular: regular rate and rhythym, no murmur, rub, or gallop Respiratory: no respiratory distress, no rales or rhonchi Gastrointestinal: normoactive bowel sounds, soft, non-tender abdomen Genitourinary: no bladder fullness, fitzgerald in urethra Skin: warm, normal color Musculoskeletal: full muscle strength Neurologic: No AAOx3 Psychiatric: interacting appropriately ICD10 Worksheet Patient Problems: Problems Problem Status Onset CAD in [place] artery Acute Cardiac arrest with ventricular fibrillation Acute s/p AV ECMO, femorals Acute ~04/30/18 Elevated troponin I level Acute Syncope Acute Ventricular fibrillation Acute
--- NOTE | 2018-05-07 16:28 | ASMTCMCOM ---
CM Note CM Note Notes: Patient is not eligible for inpatient rehab. PT states patient can d/c independently, home with his . CM available if d/c needs arise. Date Signed: 05/07/2018 04:28 PM Electronically Signed By:Nelsy King LCSW
[2018-05-07] MEDS: MELATONIN 3 MG TAB PO SCH (21:34)
[2018-05-08] MEDS: ceFAZolin 2 GM/DEXTROSE 100 ML IV SCH ×3 (06:01→21:24)
[2018-05-08 06:09] LABS: PLATELET COUNT 141 10^3/uL (150-400)
--- NOTE | 2018-05-08 08:51 | SOAPPROG ---
SOAP Progress Note Assessment/Plan: POD #8: s/p VA ECMO via right common femoral artery & left common femoral vein POD #6: decannulation with endarterectomy and bovine pericardial patch of right common femoral artery and removal of left common femoral vein cannula On exam: Right groin: wound C/D/I without sxs of infection Left groin: wound C/D/I without sxs of infection Plan: 1. Leave open to air and wash daily with soap and water Objective: Vital Signs Temp Pulse Resp BP Pulse Ox 36.6 C 61 16 120/58 L 93 05/08/18 08:00 05/08/18 08:00 05/08/18 08:00 05/08/18 08:00 05/08/18 08:00 Microbiology 05/08/18 06:19 Gastrointestinal Tract Panel (PCR) - Final Stool Salmonella Species Laboratory Results 05/08/18 05:50 05/08/18 05:50 05/07/18 05/08/18 05/09/18 05:59 05:59 05:59 Intake Total 2030 1550 Output Total 1075 220 Balance 955 1330 PT 14.5 SEC (12.0-15.0) 05/06/18 05:30 INR 1.11 (0.83-1.16) 05/06/18 05:30 ICD10 Worksheet Patient Problems: Problems Problem Status Onset CAD in [place] artery Acute Cardiac arrest with ventricular fibrillation Acute s/p AV ECMO, femorals Acute ~04/30/18 Elevated troponin I level Acute Syncope Acute Ventricular fibrillation Acute
[2018-05-08] MEDS: ASPIRIN EC 81 MG TAB PO SCH (09:21)
[2018-05-08] MEDS: METOPROLOL TARTRATE 25 MG TAB PO SCH ×2 (09:22→21:22)
[2018-05-08] MEDS: FAMOTIDINE 20 MG TAB PO SCH ×2 (09:23→21:22)
[2018-05-08] MEDS: PRASUGREL HCL 10 MG TAB PO SCH (09:24)
--- NOTE | 2018-05-08 10:17 | PCMIDPN ---
Assessment/Plan: Assessment: 58-year-old man with nosocomial fever after prolonged complicated hospitalization. His fever trend has decreased since 8:00 p.m. On 05/06. His increased temperatures a likely multifactorial with ICD placement and tissue damage related to the procedure, his recovery of his platelets towards normal driven by thrombosed we can, and his recovery of red blood cells all likely contributing to temperature elevation. He is at high risk for having a complication if he were to be bacteremic so will continue cefazolin and monitor blood cultures. Do not suspect the detected Salmonella species on the GI PCR panel is meaningful in the setting. 1. Nosocomial fever, improved 2. VFib arrest status post VA ECMO 04/30/2018, decannulation 05/02/2018 3. Status post single-chamber ICD placement 05/06/2018 4. History of spinal hardware infection with Cutibacterium acnes Plan: 1. Continue cefazolin 2 g q.8 hours, can transition to oral if he is to be discharged 2. Will follow blood cultures 3. Do not suspect detected Salmonella species by PCR is a pathogen in this setting 4. Discussed potential side effects of cefazolin including antibiotic associated diarrhea, rash, C diff colitis Waldemar Moran MD Infectious Diseases 05/08/18 10:18 Subjective: No fever or chills. Denies nausea, rash. Appetite improving. Cough no longer productive but remains particularly with deep inspiration. Objective: Vital Signs Temp Pulse Resp BP Pulse Ox 36.6 C 60 16 120/58 L 93 05/08/18 08:00 05/08/18 09:22 05/08/18 08:00 05/08/18 09:22 05/08/18 08:00 Microbiology 05/08/18 06:19 Gastrointestinal Tract Panel (PCR) - Final Stool Salmonella Species Laboratory Results 05/08/18 05:50 05/08/18 05:50 05/07/18 05/08/18 05/09/18 05:59 05:59 05:59 Intake Total 2029 1550 Output Total 1075 220 Balance 955 1330 Medications Generic Name Dose Route Start Last Admin Trade Name Freq PRN Reason Stop Dose Admin Cefazolin Sodium/Dextrose 100 mls @ 200 mls/hr 05/07/18 12:30 05/08/18 06:01 Ancef IV 06/06/18 12:29 100 mls Q8HRS BRITTANY Protocol Microbiology 05/08/18 06:19 Stool Gastrointestinal Tract Panel (PCR) - Final 05/08/18 06:19 Stool Salmonella Species 05/08/18 06:19 Stool Stool Culture - Preliminary 05/04/18 21:35 Blood Blood Culture - Preliminary 05/04/18 21:30 Blood Blood Culture - Preliminary Laboratory Tests 05/06/18 05/07/18 05/07/18 05:30 08:15 08:15 WBC 5.12 6.60 Hgb 9.1 L 10.7 L Plt Count 68 L 103 L Absolute Neuts (auto) 2.69 4.42 Absolute Lymphs (auto) 1.54 1.39 Creatinine 0.9 05/08/18 05/08/18 05:50 05:50 WBC 5.95 Hgb 10.0 L Plt Count 141 L Absolute Neuts (auto) 3.51 Absolute Lymphs (auto) 1.70 Creatinine 0.8 - Physical Exam General Appearance: alert, no apparent distress, thin, non-toxic EENT: No scleral icterus Extremities: No normal range of motion, No swelling, No erythema Skin: No rash, No erythema Neuro/Psych: alert, normal mood/affect, oriented x 3, No confused - Time Spent With Patient Time Spent with Patient: greater than 35 minutes (Discussed in detail with patient and his the risk of seeding the ICD lead if he were to have a bloodstream infection, the reason for IV antibiotics initially, and the ability to transition to oral antibiotics at the time of discharge) Time Spent with Patient: Greater than 35 minutes spent on this patients care, greater than 50% of time spent counseling, educating, and coordinating care regarding the above mentioned plan. ICD10 Worksheet Patient Problems: Problems Problem Status Onset CAD in [place] artery Acute Cardiac arrest with ventricular fibrillation Acute s/p AV ECMO, femorals Acute ~04/30/18 Elevated troponin I level Acute Syncope Acute Ventricular fibrillation Acute
--- NOTE | 2018-05-08 15:30 | HOSPPROG ---
Hospitalist Progress Note Assessment/Plan: 58-year-old man with a history of coronary artery disease and cardiac arrest VFib arrest, overall excellent recovery. Due to coronary artery disease. s/p AICD confusion: he does appear to have some short term memory impairment improved today (05/08) fevers: low grade temps, started on cefazolin no clear source follow cbc, fever curve, cx data bloody diarrhea: check GI path panel salmonella noted, unclear rolem especially in light of no further bloody stool coronary artery disease, patient has presented twice now with VFib arrest rather than any symptoms of chest pain. * Intolerant of statins in the past due to elevated CPK and myalgias * Followed by Dr. Levine who has been working with his insurance to get Repatha hypertension hyperlipidemia Disposition: s/p ICD per therapy, ok for home w home care Subjective: afebrile. case d/w dr son Objective: Vital Signs Temp Pulse Resp BP Pulse Ox 36.9 C 55 L 17 100/61 96 05/08/18 12:16 05/08/18 12:16 05/08/18 12:16 05/08/18 12:16 05/08/18 12:16 Microbiology 05/08/18 06:19 Gastrointestinal Tract Panel (PCR) - Final Stool Salmonella Species Laboratory Results 05/08/18 05:50 05/08/18 05:50 05/07/18 05/08/18 05/09/18 05:59 05:59 05:59 Intake Total 2030 1550 Output Total 1075 220 Balance 955 1330 PT 14.5 SEC (12.0-15.0) 05/06/18 05:30 INR 1.11 (0.83-1.16) 05/06/18 05:30 - Physical Exam Constitutional: no apparent distress, appears nourished Eyes: PERRL, anicteric sclera Ears, Nose, Mouth, Throat: moist mucous membranes, hearing normal Cardiovascular: regular rate and rhythym, no murmur, rub, or gallop Respiratory: no respiratory distress, no rales or rhonchi Gastrointestinal: normoactive bowel sounds, soft, non-tender abdomen, No guarding, No rebound Genitourinary: no bladder fullness, No fitzgerald in urethra Skin: warm, normal color Musculoskeletal: full muscle strength Neurologic: AAOx3 ICD10 Worksheet Patient Problems: Problems Problem Status Onset CAD in [place] artery Acute Cardiac arrest with ventricular fibrillation Acute s/p AV ECMO, femorals Acute ~04/30/18 Elevated troponin I level Acute Syncope Acute Ventricular fibrillation Acute
[2018-05-08] MEDS ORDERED: LIDOCAINE 4%/MENTHOL 1% PATCH TD SCH (21:00)
[2018-05-08] MEDS: MELATONIN 3 MG TAB PO SCH (21:22)
[2018-05-09] MEDS: ceFAZolin 2 GM/DEXTROSE 100 ML IV SCH (05:48)
[2018-05-09] MEDS: METOPROLOL TARTRATE 25 MG TAB PO SCH (08:53)
[2018-05-09] MEDS: PRASUGREL HCL 10 MG TAB PO SCH (08:53)
[2018-05-09] MEDS: FAMOTIDINE 20 MG TAB PO SCH (08:53)
[2018-05-09] MEDS: ASPIRIN EC 81 MG TAB PO SCH (08:53)
[2018-05-09] MEDS ORDERED: PATCH REMOVAL 1 EA PATCH TD SCH ×2 (09:00→21:00)
[2018-05-09] MEDS ORDERED: DOXYCYCLINE HYCLATE 100 MG CAP/TAB PO SCH (10:00)
[2018-05-09] MEDS ORDERED: DIPHENHYDRAMINE CREAM TP PRN (10:34)
[2018-05-09 11:22] VITALS: BP 137/57
--- NOTE | 2018-05-09 11:40 | PCMIDPN ---
Assessment/Plan: Assessment: 58-year-old man with nosocomial fever after prolonged complicated hospitalization. Temperature trend is no longer hurting 38 degrees C he has no focal signs or symptoms suggesting an active infection. Blood cultures negative around 48 hr, can transition to oral therapy to finish a total of 7 days of antibiotics. 1. Nosocomial fever; resolved 2. VFib arrest status post VA ECMO 04/30/2018, decannulation 05/02/2018 3. Status post single-chamber ICD placement 05/06/2018 4. History of spinal hardware infection with Cutibacterium acnes Plan: 1. Stop cefazolin 2. Start amoxicillin 500 mg q.8 hours and doxycycline 100 mg q.12 hours; stop date on both 05/15 3. Do not suspect detected Salmonella species by PCR is a pathogen in this setting 4. Discussed potential side effects of amoxicillin and doxycycline including antibiotic associated diarrhea, rash, C diff colitis Waldemar Moran MD Infectious Diseases 05/09/18 11:44 Subjective: No fever or chills overnight. No nausea, diarrhea, or abdominal pain. Minimal discomfort in his bilateral groin incisions. Shortness of breath with exertion continues to improve each day. His cough continues to improve each day. 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 Pain improving over the ICD insertion point. He does have a new intensely pruritic rash over his back. No new concerns today. Objective: Vital Signs Temp Pulse Resp BP Pulse Ox 36.8 C 65 18 137/57 H 94 05/09/18 11:22 05/09/18 11:22 05/09/18 11:22 05/09/18 11:22 05/09/18 11:36 Microbiology 05/08/18 06:19 Gastrointestinal Tract Panel (PCR) - Final Stool Salmonella Species Laboratory Results 05/08/18 05:50 05/09/18 05:50 05/08/18 05/09/18 05/10/18 05:59 05:59 05:59 Intake Total 1550 1225 240 Output Total 220 475 150 Balance 1330 750 90 Medications Generic Name Dose Route Start Last Admin Trade Name Freq PRN Reason Stop Dose Admin Amoxicillin 500 mg 05/09/18 14:00 Amoxicillin PO 06/12/18 23:00 Q8HRS BRITTANY Protocol Doxycycline Hyclate 100 mg 05/09/18 10:00 Doxycycline Hyclate PO 06/12/18 23:00 BID [facility] Protocol Discontinued Medications Generic Name Dose Route Start Last Admin Trade Name Philipq PRN Reason Stop Dose Admin Cefazolin Sodium/Dextrose 100 mls @ 200 mls/hr 05/07/18 12:30 05/09/18 05:48 Ancef IV 06/06/18 12:29 100 mls Q8HRS [facility] Protocol Microbiology 05/08/18 06:19 Stool Gastrointestinal Tract Panel (PCR) - Final 05/08/18 06:19 Stool Salmonella Species 05/08/18 06:19 Stool Stool Culture - Preliminary 05/07/18 15:11 Blood Blood Culture - Preliminary 05/07/18 15:00 Blood Blood Culture - Preliminary 05/04/18 21:35 Blood Blood Culture - Preliminary 05/04/18 21:30 Blood Blood Culture - Preliminary Laboratory Tests 05/06/18 05/07/18 05/08/18 05:30 08:15 05:50 WBC 5.12 6.60 5.95 Hgb 9.1 L 10.7 L 10.0 L Plt Count 68 L 103 L 141 L - Physical Exam General Appearance: no apparent distress, thin, non-toxic EENT: No scleral icterus Respiratory: lungs clear, normal breath sounds, No respiratory distress, No crackles, No wheezing Neck: full range of motion, supple Cardiac/Chest: regular rate, rhythm, bradycardia, No tachycardia, No diastolic murmur, No systolic murmur Extremities: other (Blanching papular rash discrete lesions on his back) Abdomen: non-tender, soft, No distended, No guarding Skin: No rash (Right groin incision site with well-approximated edges, no surrounding erythema, small area of induration superomedial unchanged from previous exam; left groin incision site with well-approximated edges, no surrounding erythema, nontender to palpation; left upper thorax ICD surgical site dressing not taken down) Neuro/Psych: alert, normal mood/affect, oriented x 3, No confused - Time Spent With Patient Time Spent with Patient: greater than 25 minutes Time Spent with Patient: Greater than 25 minutes spent on this patients care, greater than 50% of time spent counseling, educating, and coordinating care regarding the above mentioned plan. ICD10 Worksheet Patient Problems: Problems Problem Status Onset CAD in [place] artery Acute Cardiac arrest with ventricular fibrillation Acute s/p AV ECMO, femorals Acute ~04/30/18 Elevated troponin I level Acute Syncope Acute Ventricular fibrillation Acute
[2018-05-09] MEDS ORDERED: HYDROCORTISONE 0.2% VALERATE CREAM TP PRN (11:48)
[2018-05-09] MEDS ORDERED: LIDOCAINE 4%/MENTHOL 1% PATCH TD SCH (12:15)
--- NOTE | 2018-05-09 13:00 | HOSPPROG ---
Hospitalist Progress Note Assessment/Plan: 58-year-old man with a history of coronary artery disease and cardiac arrest VFib arrest, overall excellent recovery. Due to coronary artery disease. s/p AICD s/p diag stent confusion: he does appear to have some short term memory impairment improved today (05/08) fevers: low grade temps, cx neg thus far agree stool salmonella unlikely causative ow afebrile bloody diarrhea: check GI path panel salmonella noted, unclear role, especially in light of no further bloody stool coronary artery disease, patient has presented twice now with VFib arrest rather than any symptoms of chest pain. * Intolerant of statins in the past due to elevated CPK and myalgias * Followed by Dr. Levine who has been working with his insurance to get Repatha hypertension hyperlipidemia Disposition: s/p ICD dc today > 30 minutes Subjective: afebrile. blood cx neg. no diarrhea Objective: Vital Signs Temp Pulse Resp BP Pulse Ox 36.8 C 65 18 137/57 H 94 05/09/18 11:22 05/09/18 11:22 05/09/18 11:22 05/09/18 11:22 05/09/18 11:36 Microbiology 05/08/18 06:19 Gastrointestinal Tract Panel (PCR) - Final Stool Salmonella Species Laboratory Results 05/08/18 05:50 05/09/18 05:50 05/08/18 05/09/18 05/10/18 05:59 05:59 05:59 Intake Total 1550 1225 240 Output Total 220 475 150 Balance 1330 750 90 PT 14.5 SEC (12.0-15.0) 05/06/18 05:30 INR 1.11 (0.83-1.16) 05/06/18 05:30 - Physical Exam Constitutional: no apparent distress, appears nourished Eyes: PERRL, anicteric sclera Ears, Nose, Mouth, Throat: moist mucous membranes, hearing normal Cardiovascular: regular rate and rhythym, no murmur, rub, or gallop Respiratory: no respiratory distress, no rales or rhonchi Gastrointestinal: normoactive bowel sounds Genitourinary: no bladder fullness, No fitzgerald in urethra Skin: warm, other (irritant rash on back) Musculoskeletal: full muscle strength ICD10 Worksheet Patient Problems: Problems Problem Status Onset CAD in [place] artery Acute Cardiac arrest with ventricular fibrillation Acute s/p AV ECMO, femorals Acute ~04/30/18 Elevated troponin I level Acute Syncope Acute Ventricular fibrillation Acute
--- NOTE | 2018-05-09 14:41 | GDS ---
[f rep st] DISCHARGE SUMMARY DISCHARGE DIAGNOSES: 1. Sudden cardiac secondary to ventricular fibrillation, status post diagonal stent. 2. Acute systolic congestive heart failure with pulmonary edema, requiring extracorporeal membrane o xygenation. 3. Coronary artery disease, status post right coronary artery stent. 4. Fever. 5. History of upper gastrointestinal bleed secondary to gastritis in the setting of coagulopathy fro m hypothermia after cardiac arrest. 6. Cardiac arrest, status post hypothermia after cardiac arrest. 7. Salmonella in stool without obvious symptom of salmonella or gastroenteritis. 8. Fever of uncertain etiology with improvement. 9. Anemia, multifactorial. Please see admission history and physical by Dr. Carlos Etienne. Patient presented with possible cardia c arrest, taken emergently to [facility] dental lab technician, got a diag stent. He had acute pulmonary edema requiring ECMO. He underwent the HACA protocol and when upon cooling ap peared to have an excellent neurologic outcome. He had an AICD placed on the 12th as this was a 2nd episode. He was having some low-grade temperatures without obvious source. He was seen by Infectiou s Disease who placed on cefazolin and then doxycycline and amoxicillin with resolution of his fevers. Blood cultures were negative. He did not have septic physiology or an obvious source. Additionall y, urinalysis was negative. The patient is doing well, ambulating and not requiring much in the way of assistance. He is discharged home. He has outpatient followup with Cardiology. New prescription s were doxycycline, amoxicillin, Effient, and metoprolol. His lisinopril is being held for the time being. /[id number]/MODL
--- NOTE | 2018-05-09 16:56 | ASMTDCNOTE ---
Case Management Discharge Discharge Order Complete? Answers: Yes Patient to Obtain Answers: Independently Medications Transportation Arranged Answers: Family/Friends Family Notified Answers: Yes Notes: Discharge Comments Notes: Patient to discharge today independently to home. No further needs. Date Signed: 05/09/2018 04:49 PM Electronically Signed By:Nelsy King LCSW
--- NOTE | 2018-05-09 16:59 | ASMTLACE ---
LACE Length of stay for Answers: 7-13 days current admission Acuity / Level of Answers: Yes Care: Did the patient have an inpatient admission? Comorbidities - select Answers: Congestive heart failure all that apply Coronary Artery Disease Other Notes: Spinal stenosis # of Emergency department Answers: 1-2 visits in the last 6 months Score: 14 Date Signed: 05/09/2018 04:58 PM Electronically Signed By:Nelsy King LCSW
--- NOTE | 2018-05-12 21:36 | CPEKG ---
Test Reason : OPEN Blood Pressure : / mmHG Vent. Rate : 053 BPM Atrial Rate : 053 BPM P-R Int : 203 ms QRS Dur : 172 ms QT Int : 628 ms P-R-T Axes : 081 093 034 degrees QTc Int : 590 ms Sinus rhythm Borderline prolonged NV interval Right atrial enlargement RBBB and LPFB Confirmed by Deniz Walters ([id number]) on 05/12/2018 9:36:00 PM Referred By: SHEILA JIANG Confirmed By:Deniz Walters
--- NOTE | 2018-05-12 21:40 | CPEKG ---
Test Reason : OPEN Blood Pressure : / mmHG Vent. Rate : 063 BPM Atrial Rate : 063 BPM P-R Int : 198 ms QRS Dur : 092 ms QT Int : 574 ms P-R-T Axes : 073 070 084 degrees QTc Int : 588 ms Sinus rhythm Consider left ventricular hypertrophy Prolonged QT interval Confirmed by Deniz Walters ([id number]) on 05/12/2018 9:40:21 PM Referred By: SHEILA JIANG Confirmed By:Deniz Walters
--- NOTE | 2018-05-12 21:48 | CPEKG ---
Test Reason : OPEN Blood Pressure : / mmHG Vent. Rate : 089 BPM Atrial Rate : 090 BPM P-R Int : 229 ms QRS Dur : 071 ms QT Int : 407 ms P-R-T Axes : 083 072 057 degrees QTc Int : 496 ms Sinus rhythm Consider left ventricular hypertrophy Borderline prolonged QT interval Confirmed by Deniz Walters ([id number]) on 05/12/2018 9:47:51 PM Referred By: Kane Talbot Confirmed By:Deniz Walters
== END 2018-05-09 17:47 | disposition home or self-care (01) | DRG 270 ==
LOC: EDUNIT# → F2N 16:40 → F2W 05-05 11:48
PROVIDERS: ADMIT Internal Medicine Cardiovascular Disease; ATTEND Internal Medicine Interventional Cardiology
PROC: 4A023N7 Measurement of Cardiac Sampling and Pressure, Left Heart, Percutaneous Approach (ICD-10-PCS; 2018-04-30)
PROC: 027034Z Dilation of Coronary Artery, One Artery with Drug-eluting Intraluminal Device, Percutaneous Approach (ICD-10-PCS; 2018-04-30)
PROC: B2151ZZ Fluoroscopy of Left Heart using Low Osmolar Contrast (ICD-10-PCS; 2018-04-30)
PROC: B2111ZZ Fluoroscopy of Multiple Coronary Arteries using Low Osmolar Contrast (ICD-10-PCS; 2018-04-30)
PROC: 5A1522G Extracorporeal Oxygenation, Membrane, Peripheral Veno-arterial (ICD-10-PCS; 2018-04-30)
PROC: 5A1945Z Respiratory Ventilation, 24-96 Consecutive Hours (ICD-10-PCS; 2018-04-30)
PROC: 0BH18EZ Insertion of Endotracheal Airway into Trachea, Via Natural or Artificial Opening Endoscopic (ICD-10-PCS; 2018-04-30)
PROC: 04PY3DZ Removal of Intraluminal Device from Lower Artery, Percutaneous Approach (ICD-10-PCS; 2018-05-02)
PROC: 04CL3ZZ Extirpation of Matter from Left Femoral Artery, Percutaneous Approach (ICD-10-PCS; 2018-05-02)
PROC: 06PY3DZ Removal of Intraluminal Device from Lower Vein, Percutaneous Approach (ICD-10-PCS; 2018-05-02)
PROC: 0DJ08ZZ Inspection of Upper Intestinal Tract, Via Natural or Artificial Opening Endoscopic (ICD-10-PCS; 2018-05-02)
PROC: 0JH608Z Insertion of Defibrillator Generator into Chest Subcutaneous Tissue and Fascia, Open Approach (ICD-10-PCS; principal; 2018-05-06)
PROC: 02HK3JZ Insertion of Pacemaker Lead into Right Ventricle, Percutaneous Approach (ICD-10-PCS; principal; 2018-05-06)
DX: I49.01 Ventricular fibrillation (principal); I46.2 Cardiac arrest due to underlying cardiac condition; I11.0 Hypertensive heart disease with heart failure; I50.21 Acute systolic (congestive) heart failure; I25.10 Atherosclerotic heart disease of native coronary artery without angina pectoris; J96.01 Acute respiratory failure with hypoxia; J96.02 Acute respiratory failure with hypercapnia; N17.9 Acute kidney failure, unspecified; R50.9 Fever, unspecified; D64.9 Anemia, unspecified; R19.7 Diarrhea, unspecified; R00.1 Bradycardia, unspecified; E87.0 Hyperosmolality and hypernatremia; E87.5 Hyperkalemia; D69.6 Thrombocytopenia, unspecified; E78.5 Hyperlipidemia, unspecified; Z95.5 Presence of coronary angioplasty implant and graft
CPT/HCPCS: 82435-PO; 82565-PO; 82947-PO; 83605-ER; 84132-PO; 84295-PO; 84484-ER; 84520-PO; 85014-ER; 92507-GN; 92523-GN; 92526-GN; 92610-GN; 97116-GP; 97162-GP; 97166-GO; 97530-GO; 97535-GO; C1722; C1725; C1763; C1769; C1777; C1874; C1887; C9606; J0171; J0330; J0461; J0583; J0610; J0690; J1265; J1644; J1815; J1940; J2250; J2370; J2704; J2720; J3010; J3370; J3475; J3480; P9016; P9041; Q9967